=== PATIENT | male | born 1960 | race Caucasian/White ===

== ENCOUNTER 2022-03-14 15:06 | Outpatient (REF) | payer OTHER, SELFPAY ==
[2022-03-14 15:57] LABS: Influenza A PCR NEGATIVE (Negative); Influenza B PCR NEGATIVE (Negative); Resp Syncy Virus RNA Qual PCR NEGATIVE (Negative); SARS COV2 PCR INHOUSE POSITIVE (Negative)
== END 2022-03-14 15:07 | disposition home or self-care (01) ==
LOC: HO.LNP 15:06
PROVIDERS: Visit Provider Internal Medicine
DX: Z20.822 Contact with and (suspected) exposure to COVID-19 (principal); R05.9 Cough, unspecified; R09.89 Other specified symptoms and signs involving the circulatory and respiratory systems
CPT/HCPCS: 0241U

== ENCOUNTER 2022-12-05 16:09 | Outpatient (REF) | payer BC, SELFPAY ==
--- NOTE | ~2022-12-05 | XR_ITS ---
EXAMINATION: XR CHEST CLINICAL INFORMATION: Cough COMPARISON: Previous chest x-ray December 2009 TECHNIQUE: 2 views of the chest were obtained. FINDINGS: No significant abnormality is noted involving the heart, lungs, mediastinum, bony thorax or soft tissues. XR/XR chest 2V IMPRESSION: Unremarkable examination.
== END 2022-12-05 16:10 | disposition home or self-care (01) ==
LOC: HO.XRAY 16:09
PROVIDERS: PCP Internal Medicine; Visit Provider Internal Medicine
DX: R05.9 Cough, unspecified (principal)
CPT/HCPCS: 71046

== ENCOUNTER 2023-11-16 10:48 | Outpatient (REF) | payer BC, SELFPAY ==
[2023-11-16 13:23] LABS: MANUAL DIFF FLAG NO
[2023-11-16 13:29] LABS: Basophils Absolute Auto 0.1 X10*3/uL (0.0-0.2); Basophils Percent Auto 0.8 % (0-2); Eosinophils Absolute Auto 0.6 X10*3/uL (0.0-0.4); Eosinophils Percent Auto 5.9 % (0-4); Hematocrit 42.2 % (42.0-52.0); Hemoglobin 13.9 g/dl (14.0-18.0); Imm Gran Abs Auto 0.05 X10*3/uL (0.00-0.03); Imm Gran Pct Auto 0.5 % (0.0-0.4); Lymphocytes Absolute Auto 1.5 X10*3/uL (1.2-4.9); Mean Corpuscular HGB Conc 32.9 g/dl (31.0-36.0); Mean Corpuscular Hemoglobin 28.8 pg (27.0-33.0); Mean Corpuscular Volume 87.4 fL (80.0-98.0); Mean Platelet Volume 9.9 fL (9.4-12.4); Monocytes Percent Auto 10.4 % (2-11); Neutrophils Absolute Auto 6.2 x10*3/uL (2.0-8.3); Neutrophils Percent Auto 66.4 % (45-73); Platelet Count 333 X10*3/uL (160-400); Red Blood Count 4.83 X10*6/uL (4.60-5.80); Red Cell Distribution Width 13.6 % (11.0-16.0); White Blood Count 9.3 X10*3/uL (4.8-10.8)
[2023-11-16 14:09] LABS: Alanine Aminotransferase 39 U/L (0-40); Albumin Level 4.2 g/dL (3.5-5.0); Alkaline Phosphatase 120 U/L (39-117); Anion Gap 11 (12-20); Aspartate Amino Transferase 25 U/L (5-37); Bilirubin Total 0.3 mg/dL (0.0-1.0); Blood Urea Nitrogen 12 mg/dL (9-16); Calcium 9.1 mg/dL (8.4-10.2); Carbon Dioxide 25 mmol/L (22-29); Chloride 106 mmol/L (96-108); Cholesterol 152 mg/dL (<200); Estimated Glomerular Filt Rate > 60; Glucose Fasting 119 mg/dL (60-99); HDL Cholesterol 41 mg/dL (>40); LDL Cholesterol Calculated 98 mg/dL (<100); Potassium 4.2 mmol/L (3.3-5.1); Sodium 138 mmol/L (135-145); Total Protein 7.6 g/dL (6.5-8.0); Triglycerides 69 mg/dL (<150)
[2023-11-16 14:25] LABS: Prostate Specific Antigen Scr 1.27 ng/mL (<0.05-4.0)
== END 2023-11-16 10:49 | disposition home or self-care (01) ==
LOC: HO.10HDL 10:48
PROVIDERS: Visit Provider Internal Medicine
DX: Z12.5 Encounter for screening for malignant neoplasm of prostate (principal); I10 Essential (primary) hypertension; K21.9 Gastro-esophageal reflux disease without esophagitis; J45.909 Unspecified asthma, uncomplicated; E78.00 Pure hypercholesterolemia, unspecified; N40.0 Benign prostatic hyperplasia without lower urinary tract symptoms
CPT/HCPCS: 36415; 80053; 80061; 84153; 85025

== ENCOUNTER 2024-07-21 08:08 | Day surgery (SDC) | payer BC, SELFPAY ==
[2024-07-17 13:50] VITALS: BMI 37.7
--- NOTE | 2024-07-21 08:20 | HO.ANESPROP2 ---
Documented by User: Elo Mehta NP 07/18/24 09:27 HPI - Anesthesia Eval Consult details Narrative: 63yo M for Upper Endoscopy and Colonoscopy [facility] Past Medical History Medical History (Updated 07/18/24 @ 08:00 by Juani Garcia, RN) Hepatitis C Asthma Allergies Elevated cholesterol HTN (hypertension) Surgical History Surgical History (Updated 07/18/24 @ 08:00 by Juani Garcia, RN) Total knee replacement status Hx of colonoscopy Social History Social History Advance Directives: No Advance Directives Information Provided: Yes Meds Allergies Allergy/AdvReac Type Severity Reaction Status Date / Time amoxicillin [AMOXICILLIN] Allergy Mild RASH Verified 07/21/24 08:19 Home Medications ?Medication ?Instructions ?Recorded ?Confirmed ?Last Taken ?Type diltiazem HCl 120 mg 120 mg PO DAILY 07/17/24 Unknown History capsule,extended release 24 hr, controlled (DILT-XR) losartan 50 mg tablet 50 mg PO DAILY 07/17/24 Unknown History montelukast 10 mg tablet 10 mg PO DAILY 07/17/24 Unknown History omeprazole 20 mg capsule,delayed 20 mg PO DAILY 07/17/24 Unknown History release ramipril 10 mg capsule 10 mg PO DAILY 07/17/24 Unknown History simvastatin 40 mg tablet 40 mg PO BEDTIME 07/17/24 Unknown History Aspir-81 07/18/24 07/18/24 Unknown History Symbicort 07/18/24 Unknown History Ventolin HFA 07/18/24 Unknown History Exam Height,Weight and Vital Signs: Height 5 ft 11 in Weight 122.583 kg Assessment and Plan Assessment Anesthesia Assessment: Chart Reviewed Documented by User: Izabella Flowers DO 07/21/24 08:25 [facility] Past Medical History Medical History (Updated 07/18/24 @ 08:00 by Juani Garcia, RN) Hepatitis C Asthma Allergies Elevated cholesterol HTN (hypertension) Family History Family history of problems with anesthesia: No Surgical History Surgical History (Updated 07/18/24 @ 08:00 by Juani Garcia RN) Total knee replacement status Hx of colonoscopy History of Problems with Anesthesia: No Social History Social History Advance Directives: No Advance Directives Information Provided: Yes Meds Allergies Allergy/AdvReac Type Severity Reaction Status Date / Time amoxicillin [AMOXICILLIN] Allergy Mild RASH Verified 07/21/24 08:19 Home Medications ?Medication ?Instructions ?Recorded ?Confirmed ?Last Taken ?Type diltiazem HCl 120 mg 120 mg PO DAILY 07/17/24 Unknown History capsule,extended release 24 hr, controlled (DILT-XR) losartan 50 mg tablet 50 mg PO DAILY 07/17/24 Unknown History montelukast 10 mg tablet 10 mg PO DAILY 07/17/24 Unknown History omeprazole 20 mg capsule,delayed 20 mg PO DAILY 07/17/24 Unknown History release ramipril 10 mg capsule 10 mg PO DAILY 07/17/24 Unknown History simvastatin 40 mg tablet 40 mg PO BEDTIME 07/17/24 Unknown History Aspir-81 07/18/24 07/18/24 Unknown History Symbicort 07/18/24 Unknown History Ventolin HFA 07/18/24 Unknown History Exam Exam Date and Time: 07/21/24 0820 Airway Mallampati Class: II TM Dist: >3cm Neck ROM: Full Loose/Missing/Broken Teeth: No (patient denies any loose or broken teeth) Heart: S1S2 Lungs: CTAB Assessment and Plan Assessment Anesthesia Assessment: Anesthesia Plan Discussed and Chart Reviewed Final Anesthetic Review Family History of Problems with Anesthesia: No History of Problems with Anesthesia: No NPO: Yes ASA Class: II Final Preanesthetic Review: No Changes in Pt Med Stat, Meds/Allgs Chart Reviewed, Consent Obtained/Reviewed and Anes Risks/Benef Reviewed Patient Risk: Low Procedure Risk: Low Anesthetic Plan Anesthetic Plan: MAC: and Agree w/ Assess. and Plan Disposition: Standard PACU
[2024-07-21 08:21] VITALS: BMI 37.7
[2024-07-21] MEDS: Lactated Ringers 1,000 ML 100 ML IVCONT (08:42)
[2024-07-21 08:43] VITALS: BP 159/92; PULSE 91; RESP 14; TEMP 36.1; O2SAT 91
[2024-07-21 09:54] VITALS: BP 101/62; PULSE 98; RESP 16; TEMP 36.9; O2SAT 97
--- NOTE | 2024-07-21 10:03 | P.BOP_ITS ---
Brief Operative Note Date of Service: 07/21/24 Pre-op diagnosis: GERD, Screening Post-op diagnosis: other (R/O Ruiz's, Hiatal hernia, Colon polyp) Procedure: EGD with biopsies, Colonoscopy to the cecum and TI with cold snare polypectomy x 1 Surgeon: Inocente Peñaloza MD Anesthesia: MAC Was an [employer] used for this Procedure?: No Estimated blood loss (mL): 2.0 Pathology: other (A. Esophagus 38-39cm B. Gastric polyps C. Ascending colon polyp) Condition: stable Disposition: PACU
[2024-07-21 10:09] VITALS: BP 124/77; PULSE 81; RESP 16; TEMP 36.6; O2SAT 96
--- NOTE | 2024-07-21 10:32 | OP_ITS ---
DATE OF SERVICE: 07/21/2024 SURGEON: Inocente Peñaloza MD INDICATIONS: The patient presents for evaluation of gastroesophageal reflux and colorectal cancer screening. Full consent has been obtained from him for this, including risks of bleeding and perforation. PREOPERATIVE DIAGNOSIS: POSTOPERATIVE DIAGNOSIS: PROCEDURE PERFORMED: Esophagogastroduodenoscopy with biopsies, and colonoscopy to the cecum and terminal ileum with cold snare polypectomy. ESTIMATED BLOOD LOSS: COMPLICATIONS: ANESTHESIA: Monitored anesthesia care. ASSISTANTS: SPECIMENS: PREOPERATIVE DIAGNOSES: Gastroesophageal reflux and colorectal cancer screening. POSTOPERATIVE DIAGNOSES: Gastroesophageal reflux, colorectal cancer screening, rule out Ruiz esophagus, hiatal hernia, gastric polyps, colon polyp, diverticulosis, and internal hemorrhoids. DESCRIPTION OF PROCEDURE: The patient was placed in the left lateral decubitus position. The Olympus video gastroscope was passed in the posterior oropharynx and upper esophagus under direct vision. The scope was passed slowly into the distal esophagus. The gastroesophageal junction appeared at 39 cm. Extending from this to 38 cm, was a segment of what appeared to be noncircumferential Ruiz mucosa. There was no overlying lesion nor esophagitis. The scope entered the stomach. There was a small hiatal hernia. The scope was advanced to pylorus and the duodenum was cannulated to the descending portion. The duodenum including the bulb appeared normal without mass or ulceration. The scope was withdrawn back to the stomach. The gastric antrum and body appeared normal with good peristalsis. Scope was retroflexed, visualizing the proximal stomach carefully which appeared normal, without any sign of mass or ulceration, other than multiple hyperplastic-appearing gastric polyps. Three of these were biopsied. The remainder of the proximal stomach appeared normal. The scope was straightened and withdrawn back to the esophagus. Multiple biopsies were obtained from the segment of mucosa appearing consistent with Ruiz mucosa. Proximal to 38 cm, the esophageal mucosa appeared normal. The scope was withdrawn from the patient. He was turned around for the colonoscopy. The digital rectal exam revealed no abnormalities. The Olympus video pediatric colonoscope was then entered into the rectum and advanced easily to the cecum. Once in the cecum, I did identify normal-appearing cecal pouch with appendiceal orifice and a normal-appearing ileocecal valve. The terminal ileum was cannulated and appeared normal. The scope was withdrawn back in the colon. The entire cecum and ileocecal valve appeared normal. The scope was then slowly withdrawn assessing all mucosal surfaces carefully. Preparation was excellent. In the proximal ascending colon, was an approximately 5 mm grossly adenomatous polyp, which was removed by cold snare polypectomy and recovered by suction. The polypectomy site appeared clean, without any sign of residual polyp nor bleeding. I did not visualize any other polyps, colitis, nor angiodysplasias. There was a mild amount of sigmoid diverticulosis. In the rectum, scope was retroflexed, visualizing internal hemorrhoids, but no other pathology. The rectal mucosa appeared normal. The scope was straightened and withdrawn from the patient. He tolerated the procedure well and was returned to the recovery area in stable condition. IMPRESSION: 1. Gastroesophageal reflux, rule out Ruiz esophagus. 2. Hiatal hernia. 3. Gastric polyps. 4. Colon polyp. 5. Diverticulosis. 6. Internal hemorrhoids. PLAN: The results of the pathology will be checked. If the colon polyp is a tubular adenoma, I would recommend a followup colonoscopy in 5 years. If it is only hyperplastic, I would recommend a followup colonoscopy in 10 years. If the upper endoscopy biopsies do show Ruiz esophagus without dysplasia, I would recommend a repeat upper endoscopy in 3 years. He was advised to continue his daily omeprazole. He was advised not to use any aspirin and NSAIDs for 1 week. He will, otherwise, see me on a p.r.n. basis. MD GHADA Costello/JUDY / [id number]
== END 2024-07-21 10:40 | disposition home or self-care (01) ==
PROVIDERS: PCP Internal Medicine; Visit Provider Internal Medicine
PROC: (CPT 45385; principal; 2024-07-21 08:30)
DX: Z12.11 Encounter for screening for malignant neoplasm of colon (principal); D12.2 Benign neoplasm of ascending colon; K57.30 Diverticulosis of large intestine without perforation or abscess without bleeding; K64.8 Other hemorrhoids; K21.9 Gastro-esophageal reflux disease without esophagitis; K22.70 Barrett's esophagus without dysplasia; K31.7 Polyp of stomach and duodenum; K44.9 Diaphragmatic hernia without obstruction or gangrene; I10 Essential (primary) hypertension; E78.5 Hyperlipidemia, unspecified; J45.909 Unspecified asthma, uncomplicated; Z79.51 Long term (current) use of inhaled steroids; Z79.899 Other long term (current) drug therapy; Z87.891 Personal history of nicotine dependence
CPT/HCPCS: 45385; 43239; 88305; 88313; 88342; J1100; J1596; J2003; J2704

== ENCOUNTER 2024-10-01 11:43 | Outpatient (REF) | payer BC, SELFPAY ==
--- NOTE | ~2024-10-01 | XR_ITS ---
EXAMINATION: XR CHEST CLINICAL INFORMATION: COUGH,ASTHMA COMPARISON: December 05, 2022. TECHNIQUE: 2 views of the chest were obtained. FINDINGS: There is no gross pneumothorax. Heart size is normal. Lung volumes are low. Faint opacities in the bilateral lower lungs, right greater than left. No significant pleural effusion. Moderate degenerative changes in the thoracic spine. XR/XR chest 2V IMPRESSION: Faint opacities in the bilateral lower lungs, right greater than left. This study was presented today to October 01, 2024 for interpretation. Stat results provided at this time as requested by referring provider. Electronically signed by: Shanice Correia MD 10/01/2024 01:34 PM [facility]
--- OUTSIDE RECORDS SUMMARY | 2024-10-01 11:46 | XMS_ITS | Patient Health Record ---
Author Organization [facility] Address [address] [facility] [address] [place] [phone] Care Team Providers Care Brim Presser Name Role Phone Jayro Banegas MD Primary Care Provider Inocente France Unavailable [phone] ALLERGIES No Known Allergies RESULTS Component Value Reference Range Notes Pathology (Not yet reviewed by provider) Interpretation: Performing Lab:[facility], [address] [place] [phone] Notes/Report: REASON FOR REFERRAL Referring Provider First Name Jayro Referring Provider Last Name Makenzie Referring Provider Speciality Internal M edicine Referred Organization [facility] Referred Provider Inocente Peñaloza Referred Address [address] [facility],[address],[place], [place],[address], Referred Provider Specialty Gastroentero logy General Notes Adwoa Solo 024 11:46:23 AM EDT > requested an o blue ref from Dr Mccann office for visit with Dr Peñaloza 03-14-2024 Referral Priority Routine MEDICATIONS Medication SIG (Take, Route, Frequency, Duration) Notes Start Date End Date Status Symbicort 80-4.5 MCG/ACT 1 puff as neede d Inhalation every 4 hrs Active Omeprazole 20 MG 1 capsule Orally Onc e a day for 30 day(s) 10/20/2016 Active Ventolin HFA 108 (90 Base) MCG/ACT 1 puff as needed Inhalation every 4 hrs Active Aspir-Low 81 MG 1 tablet Orally Once a day for 30 day(s) Active dilTIAZem HCl 120 MG as directed Orally Active Losartan Potassium 50 MG 1 tablet Orally Once a day for 30 day(s) Active Simvastatin 40 MG 1 tablet in the even ing Orally Once a day Active Montelukast Sodium 10 MG 1 tablet Orally Once a day Active IMMUNIZATIONS Vaccine Route Administration Date Status Comme nts Influenza Unknown 08/07/2023 Administered SOCIAL HISTORY Sex Assigned At : Social History Observation Description Sex Assigned At Unknown PROBLEMS Problem Type ICD Code Onset Dates Problem Status W/U Status Risk SNOMED Code Notes Problem Gastroesophageal reflux disease, esophagitis presence not specified (K21.9) Active confirmed 656232706 Problem Encounter for screening for malignant neoplasm of colon (Z12.11) Active confirmed 551912987 Problem Encounter for screening for malignant neoplasm of rectum (Z12.12) Active confirmed Screening for malignant neoplasm of rectum (586106127) Problem Diverticulosis of large intestine without perforation or abscess without bleeding (K57.30) Active confirmed Diverticul ar disease of colon (668077633) Problem Gastroesophageal reflux disease (K21.9) Active confirmed Gastroesophagea l reflux disease (129578462) Problem Gastric polyps (K31.7) Active confirmed Benign neoplasm of stomach (79126039) VITAL SIGNS Temperature 98.2 degrees Fahrenheit 04/01/2024 Blood pressure diastolic 00 mm Hg 04/01/2024 Height 71 in 04/01/2024 Blood pressure systolic 000 mm Hg 04/01/2024 Weight 270 lb 4 oz lbs 04/01/2024 BMI 37.69 kg/m2 04/01/2024 Encounters Encounter Location Date Provider Diagnosis [facility] [place] [address], [place] [phone] 07/21/2024 Inocente Peñaloza Colon cancer screeni ng Z12.11 ; Colon polyps K63.5 ; Diverticulosis of large intestine without perforation or abscess without bleeding K57.30 ; Other hemorrhoids K64.8 ; Gastroesophageal reflux disease K21.9 ; Other specified disease of esophagus K22.89 ; Hiatal hernia K44.9 and Gastric polyps K31.7 [facility] [address] [place] [address] 04/01/2024 Inocente Peñaloza Gastroesophageal ref lux disease, esophagitis presence not specified K21.9 ; Encounter for screening for malignant neoplasm of colon Z12.11 and Encounter for screening for malignant neoplasm of rectum Z12.12 ASSESSMENTS Encounter Date Diagnosis Assessment Notes Treatment Notes Treatment Clinical Notes 07/21/2024 Colon cancer screeni ng (ICD-10 - Z12.11) 07/21/2024 Colon polyps (ICD-10 - K63.5) 04/01/2024 Encounter for screen ing for malignant neoplasm of colon (ICD-10 - Z12.11) 04/01/2024 Gastroesophageal ref lux disease, esophagitis presence not specified (ICD-10 - K21.9) Stop aspirin for 1 week before the procedures 07/21/2024 Diverticulosis of la rge intestine without perforation or abscess without bleeding (ICD-10 - K57.30) 04/01/2024 Encounter for screen ing for malignant neoplasm of rectum (ICD-10 - Z12.12) 07/21/2024 Other hemorrhoids (ICD-10 - K64.8) 07/21/2024 Gastroesophageal ref lux disease (ICD-10 - K21.9) 07/21/2024 Other specified dise ase of esophagus (ICD-10 - K22.89) 07/21/2024 Hiatal hernia (ICD-1 0 - K44.9) 07/21/2024 Gastric polyps (ICD- 10 - K31.7) PLAN OF TREATMENT Pending Test Test Name Order Date Pathology 07/21/2024 Future Test Test Name Order Date UPPER GI ENDOSCOPY 10/20/2016 COLONOSCOPY 10/20/2016 UPPER GI ENDOSCOPY 04/01/2024 COLONOSCOPY 04/01/2024 Insurance Providers Payer Name Payer Address Payer Phone Subscriber Number Group Number Insured Name Patient Relationship to Insured Coverage Start Date Coverage End Date [facility] [address] [place] [address] [id number] ADENIKE HAMILTON Self - patient is the insured MEDICAL (GENERAL) HISTORY Medical History History ICD Code Denies NE,DM,CVA,renal disease Hypertension Kidney stones--cystoscopy Asthma GERD Hyperlipidemia Told of an irregular heartbeat --Dr. Anabella brar--neg.ETT Surgical History Surgery Date(Month/Year)
--- OUTSIDE RECORDS SUMMARY | 2024-10-01 11:46 | XMS_ITS ---
Author Organization [facility] Address [address] [place] [address] Care Team Providers Care Cashier Manager Name Role Phone Jayro Banegas MD Primary Care Provider Kateya Inocente Soto Unavailable [phone] REASON FOR VISIT screening,gerd PROBLEMS Problem Type ICD Code Onset Dates Problem Status W/U Status Risk SNOMED Code Notes Problem Diverticulosis of large intestine without perforation or abscess without bleeding (K57.30) Active confirmed Diverticul ar disease of colon (360676903) Problem Gastroesophageal reflux disease (K21.9) Active confirmed Gastroesophagea l reflux disease (812903758) Problem Gastric polyps (K31.7) Active confirmed Benign neoplasm of stomach (55038292) Encounters Encounter Location Date Provider Diagnosis [facility] [place] [address] [place] [phone] 07/21/2024 Inocente Peñaloza Colon cancer screeni ng Z12.11 ; Colon polyps K63.5 ; Diverticulosis of large intestine without perforation or abscess without bleeding K57.30 ; Other hemorrhoids K64.8 ; Gastroesophageal reflux disease K21.9 ; Other specified disease of esophagus K22.89 ; Hiatal hernia K44.9 and Gastric polyps K31.7 ASSESSMENTS Encounter Date Diagnosis Assessment Notes Treatment Notes Treatment Clinical Notes 07/21/2024 Colon cancer screeni ng (ICD-10 - Z12.11) 07/21/2024 Colon polyps (ICD-10 - K63.5) 07/21/2024 Diverticulosis of la rge intestine without perforation or abscess without bleeding (ICD-10 - K57.30) 07/21/2024 Other hemorrhoids (ICD-10 - K64.8) 07/21/2024 Gastroesophageal ref lux disease (ICD-10 - K21.9) 07/21/2024 Other specified dise ase of esophagus (ICD-10 - K22.89) 07/21/2024 Hiatal hernia (ICD-1 0 - K44.9) 07/21/2024 Gastric polyps (ICD- 10 - K31.7) PLAN OF TREATMENT No Information
--- OUTSIDE RECORDS SUMMARY | 2024-10-01 11:46 | XMS_ITS ---
Author Organization [facility] Address [address] [place] [phone] Care Team Providers Care Epoxy Fabrication Supervisor Name Role Phone Jayro Banegas MD Primary Care Provider Inocente France Unavailable [phone] ALLERGIES No Known Allergies REASON FOR VISIT Patient presents today for a COLON SCREENING MEDICATIONS Medication SIG (Take, Route, Frequency, Duration) Notes Start Date End Date Status Ventolin HFA 108 (90 Base) MCG/ACT 1 [...] even ing Orally Once a day Active Symbicort 80-4.5 MCG/ACT 1 puff as neede d Inhalation every 4 hrs Active Omeprazole 20 MG 1 capsule Orally Onc e a day for 30 day(s) 10/20/2016 Active Montelukast Sodium 10 MG 1 tablet Orally Once a day Active VITAL SIGNS BMI 37.69 kg/m2 04/01/2024 Blood pressure systolic 000 mm Hg 04/01/20 24 Blood pressure diastolic 00 mm Hg 024 Height 71 in 04/01/2024 Temperature 98.2 degrees Fahrenheit 04/01/20 24 Weight 270 lb 4 oz lbs 04/01/2024 Encounters Encounter Location Date Provider Diagnosis [facility] [address] [place] [id number] 04/01/2024 Inocente Peñaloza Gastroesophageal ref lux disease, esophagitis presence not specified K21.9 ; Encounter for screening for malignant neoplasm of colon Z12.11 and Encounter for screening for malignant neoplasm of rectum Z12.12 ASSESSMENTS Encounter Date Diagnosis Assessment Notes Treatment Notes Treatment Clinical Notes 04/01/2024 Gastroesophageal ref lux disease, esophagitis presence not specified (ICD-10 - K21.9) Stop aspirin for 1 week before the procedures 04/01/2024 Encounter for screen ing for malignant neoplasm of colon (ICD-10 - Z12.11) 04/01/2024 Encounter for screen ing for malignant neoplasm of rectum (ICD-10 - Z12.12) PLAN OF TREATMENT Treatment Notes Assessment Notes Gastroesophageal reflux dise ase, esophagitis presence not specified Stop aspirin for 1 week before the procedures Future Test Test Name Order Date UPPER GI ENDOSCOPY 04/01/2024 COLONOSCOPY 04/01/2024 Next Appt Details Follow Up: prn, Reason: Progress Notes * Examination Category Sub-Category Detail Notes General Examination GENERAL APPEARANCE: pleasant , well nourished, well developed, in no acute distress HEAD: EYES: sclera non-icteric EARS: NOSE: THROAT: NECK/THYROID: no cervical lymphade nopathy, neck supple HEART: S1, S2 normal CHEST: LUNGS: clear to auscultatio n bilaterally ABDOMEN: normal bowel sounds, no guarding or rigidity, no guarding or rigidity, no masses palpable, soft, nontender, nondistended NEUROLOGIC: alert and oriented SKIN: nonjaundiced, no spi sapna angiomata EXTREMITIES: no edema PERIPHERAL PULSES: BACK: BREASTS: MUSCULOSKELETAL: MALE GENITOURINARY: LYMPH NODES: RECTAL EXAM: FEMALE GENITOURINARY: ORAL CAVITY: mucosa moist
== END 2024-10-01 11:44 | disposition home or self-care (01) ==
LOC: HO.XRAY 11:43
PROVIDERS: PCP Internal Medicine; Visit Provider Internal Medicine
DX: R05.9 Cough, unspecified (principal); J45.909 Unspecified asthma, uncomplicated
CPT/HCPCS: 71046

== ENCOUNTER 2024-12-26 15:17 | Outpatient (AMB) | payer BC, SELFPAY ==
[2024-12-26 15:29] VITALS: BP 130/72; PULSE 91; O2SAT 97; BMI 39.7
--- NOTE | 2024-12-26 15:29 | A.OFFVIS_ITS ---
Vital Signs 12/26/24 15:29 Height 5 ft 11 in Weight 285 lb BMI 39.7 BP 130/72 Blood Pressure Location Rt brachial Position Sitting Pulse 91 Pulse Source Pulse Oximeter Pulse Oximetry (%) 97 Oxygen Delivery Method Room Air Intake Visit Reasons: Asthma Press Hand Supervisor Required: No Sign Manufacturer: Sign Manufacturer offered & declined Accompanied by: Self / Same As Patient Allergies amoxicillin [AMOXICILLIN] Allergy (Mild, Verified 12/26/24 15:33) RASH Medication List - Last Reconciled 12/26/24 by Emily Karimi LPN albuterol sulfate 2.5 mg inhalation Q4H PRN [Aspir-81 ] diltiazem HCl ER (DILT-XR) 120 mg PO DAILY losartan 50 mg PO DAILY montelukast 10 mg PO DAILY omeprazole 20 mg PO DAILY ramipril 10 mg PO DAILY simvastatin 40 mg PO BEDTIME [Symbicort ] [Ventolin HFA ] HPI HPI Asthma: Details: Pérez is a pleasant 64 year old male, former smoker, quit 20 years ago with 20pyh with underlying asthma, HTN and GERD. He was referred by PCP for pulmonary evaluation. He reports persistent productive cough with green sputum, wheezing and dyspnea, last treated with doxycycline and prednisone on 10/27/24. Prior to t [facility] he was treated with prednisone and azithromycin with suboptimal effect. He has been using albuterol MDI/neb multiple times per day with moderate effect. He is currently prescribed Symbicort 160mcg however has not taken consistently up until recently. He notes that with URI he would take however once symptoms resolve he would hold Symbicort. He reports h/o recurrent respiratory infections however this year has been more persistent. He reports asthma dx as an adult, never requiring intubation/hospitalization related to respiratory distress. He denies seasonal allergies however respiratory symptoms worsen seasonally. He denies any recent allergy testing. He denies any occupational exposures. He denies any pertinent family history. [facility] Medical History (Updated 12/26/24 @ 15:58 by Jacqueline Jeter NP) Hepatitis C Asthma Allergies Elevated cholesterol HTN (hypertension) Surgical History (Updated 07/18/24 @ 08:00 by Juani Garcia RN) Total knee replacement status Hx of colonoscopy Social History (Updated 12/26/24 @ 15:38 by Emily Karimi LPN) Are you a primary post acute care nurse practitioner to a significant other at home: No Do you presently have visiting nurse or other home services: No Patient Tobacco Use Status: Former Tobacco user Cigarette Packs Per Day: 1 Years Smoked: 20 Review of Systems Const Denies chills, Denies excessive sweating, Denies fever(s), Denies headache(s) and Denies night sweats Eyes Denies dry eyes, Denies irritation and Denies itchy eyes ENT Reports Normal hearing present, Denies headache(s), Denies nasal congestion, Denies nasal discharge, Denies post nasal drip and Denies sore throat Card Denies chest pain, Denies chest pain at rest, Denies chest pain with activity, Denies claudication, Denies leg edema, Reports dyspnea on exertion, Denies orthopnea and Denies paroxysmal nocturnal dyspnea Resp Reports change in phlegm color, Reports chest congestion, Reports cough, Denies hemoptysis, Reports excessive phlegm production, Denies pain on inspiration, Denies pain with cough, Reports dyspnea on exertion, Denies stridor and Reports wheezing Musc Denies myalgias Neuro Reports Normal hearing present and Denies headache(s) Endo Denies excessive sweating Cas/Lymph Denies lymphadenopathy Aller/Immun Denies itchy eyes, Denies seasonal rhinorrhea and Reports wheezing Physical Exam Vital Signs: Last Vital Signs Pulse 91 12/26/24 15:29 BP 130/72 12/26/24 15:29 Pulse Ox 97 12/26/24 15:29 Oxygen Delivery Method Room Air 12/26/24 15:29 BMI result Body Mass Index 39.7 Const General: cooperative, healthy appearing, comfortable, no acute distress, well developed and alert Nutritional Appearance: obese Orientation/consciousness: patient oriented x3 Limitations: no limitations HEENT Head: Yes normal to inspection, Yes normocephalic and Yes atraumatic Ears: hearing grossly normal bilaterally and external ears normal Eyes General: appearance normal, both eyes and all related structures Eyelids: Yes eyelids normal Sclerae: sclerae normal EOM: EOMs intact bilaterally Neck Neck: Yes normal visual inspection and Yes no lymphadenopathy Lymphatic: no lymphadenopathy noted Chest Chest palpation & inspection: normal inspection of the chest Resp Effort & Inspection: normal respiratory effort, able to speak in complete sentences, no audible wheezes, Actively coughing (harsh wet cough), no stridor, not tachypneic, no tripod positioning and no use of accessory muscles Auscultation: rhonchi and wheezes Cardio Jugular venous distension: no JVD Rate: regular rate Rhythm: regular rhythm Skin Other: warm, dry General skin exam: no rashes or lesions noted Neuro General: patient oriented x3 Cranial nerves: Yes Normal hearing present Cognition (Neuro): normal cognition Gait exam (Neuro): Normal gait present Extrem General: Yes normal to inspection, Yes capillary refill normal, Yes no clubbing, cyanosis or edema and Yes no pedal edema Psych Appearance: grossly normal and well kempt Speech and movement: Normal speech and movement present and Clear speech present Affect: normal affect Attitude: cooperative Thought process: Normal thought process present Thought content: Normal thought content present Insight: Good insight present (Psych) Judgement: Good judgement present (Psych) Office Procedures Nebulizer Treatment Nebulizer Treatment 13361-Qkhfjyrrd/MDI RX initial, or Nebulizer Subsequent Treatment Office Meds ipratropium 0.5 mg-albuterol 3 mg (2.5 mg base)/3 mL nebulization soln Performing Provider: Jacqueline Jeter NP Performing Location: [facility] [place] [facility] Administered by: Emily Karimi LPN on 12/26/24 16:10 Dose Route Admin Location Dispensed Lot Number Expiration Date [facility] Orthopedic Rn 3 mL inhalation 3 mL [id number] 06/14/26 [id number] [employer] Assessment & Plan Assessment & Plan (1) Asthma: Code(s): J45.909 - Unspecified asthma, uncomplicated Category: Medical (2) Cough: Code(s): R05.9 - Cough, unspecified Category: Medical (3) Environmental allergies: Code(s): Z91.09 - Other allergy status, other than to drugs and biological substances Category: Medical Plan Pérez presents with subacute cough with minimal response to azithromycin and doxycycline, will send in Vantin and prednisone. If no improvements will send for sputum. Will also send for CXR, prior CXR 10/07 revealed bibasilar opacities. Will enter order for PFT to assess severity of obstructive defect as well as RAST to assess for an allergic component. All questions were answered and patient is in agreement of plan. Will follow up in 4 weeks or sooner if needed. Orders: Orders XR chest 2V 12/27/24 R05.9 - Cough, unspecified PFT pulmonary function test 12/26/24 J45.909 - Unspecified asthma, uncomplicated Immunoglobulin E 12/27/24 Z91.09 - Other allergy status, other than to drugs and biological substances Resp Allergy Profile Region I 12/27/24 Z91.09 - Other allergy status, other than to drugs and biological substances Complete Blood Count Auto Diff 12/27/24 Z91.09 - Other allergy status, other than to drugs and biological substances AMB Nebulizer Treatment 12/26/24 J45.909 - Unspecified asthma, uncomplicated Medications: New cefpodoxime must administer with a meal/food 200 mg PO BID 14 tabs 0RF prednisone see taper instructions; 40 mg Daily x3 days, 30 mg daily x3 days, 20 mg daily x3 days, 10 mg daily x3 days 10 mg PO DIRECTED 30 tabs 0RF ipratropium-albuterol 0.5 mg-3 mg(2.5 mg base)/3 mL 3 mL inhalation Q6H PRN 180 mL 3RF wheezing Coding Level of Care Code New Pt Level 4 (96293) Diagnoses Asthma J45.909 Cough R05.9 Environmental allergies Z91.09 CPT Codes Nebulizer Treatment - Nebulizer Treatment, initial or subsequent: 84332- Nebulizer/MDI RX initial, or Nebulizer Subsequent Treatment ([id number])
--- OUTSIDE RECORDS SUMMARY | 2024-12-26 16:32 | XMS_ITS ---
Author Organization [facility] Address [address] [place] [phone] Care Team Providers Care Financial Institution Treasurer Name Role Phone Jayro Banegas MD Primary Care Provider Inocente France Unavailable [phone] REASON FOR VISIT screening,gerd Problems Problem Type SNOMED Code ICD Code Onset Dates Problem Status W/U Status Risk Notes Problem Diverticular disease of colon (509162824) Diverticulosis of large intestine without perforation or abscess without bleeding (K57.30) Active confirmed Problem Gastroesophageal reflux disease (818111021) Gastroesophageal reflux disease (K21.9) Active confirmed Problem Benign neoplasm of stomach (98527557) Gastric polyps (K31.7) Active confirmed Encounters Encounter Location Date Provider Diagnosis [facility] [place] [address] [place] [phone] 07/21/2024 Inocente Peñaloza Colon cancer screeni ng [...] Notes * ADENIKE HAMILTONDOB:1960 (64 yo M)Acc No.[id number]:07/21/2024 EGD and COL/MAC Patient:?ADENIKE HAMILTON Provider:?Inocente Peñaloza MD :1960???Age:63 Y???Sex:Male Cody e:07/21/2024 Address:[address] [place], [place] [phone] Pcp:Jayro Banegas MD Subjective: * Chief Complaints: * ???1. Screening,gerd. * Medical History:? Objective: * Vitals:? Assessment: * Assessment: 1.?Colon cancer screening - Z12.11 (Primary)???2.?Colon polyps - K63.5???3.?Diverticulosis of large intestine without perforation or abscess without bleeding - K57.30???4.?Other hemorrhoids - K64.8???5.?Gastroesophageal reflux disease - K21.9???6.?Other specified disease of esophagus - K22.89???7.?Hiatal hernia - K44.9???8.?Gastric polyps - K31.7??? Plan: * Treatment: * Procedure Codes:?31184 LESIO N REMOVAL COLONOSCOPY, Modifiers: [place] , [address] UPPER GI ENDOSCOPY, BIOPSY * * The named appointment provid er may or may not be the originator of this progress note, and it is not deemed complete until electronically signed by the appointment provider. Sign off status: Pending * Provider:?Inocente Peñaloza MD Date:? 024 Generated for Beto nguyen/Karlene/eTransmitting on:?12/26/2024 04:31 PM EDT
--- OUTSIDE RECORDS SUMMARY | 2024-12-26 16:32 | XMS_ITS ---
Author Name [facility] Organization Unknown Encounters Encounter Type Encounter Reason Primary Diagnosis Location Date Emergency COVID + [facility] 01/12/2022 Care Team Organization Name Specialty Phone Email Start Date End Da te [facility] VERIFY,PCP Primary Care 2 06/02/2024 [facility] PCP VERIFY Primary Care 2 01/12/2022
--- OUTSIDE RECORDS SUMMARY | 2024-12-26 16:32 | XMS_ITS | Patient Health Record ---
Author Organization [facility] Address [address] [place] [phone] Care Team Providers Care Galvanizer Name Role Phone Jayro Banegas MD Primary Care Provider Kateya Inocente Soto Unavailable [phone] Allergies No Known Allergies Results Component Value Reference Range Notes Pathology (Not yet reviewed by provider) Interpretation: Performing Lab:[facility], [address] [place] [phone] Notes/Report: Name: Pérez Hazel José Miguel Age/Sex: 63/M : 1960 Unit#: [id number] Attend Dr: Inocente Peñaloza MD Re07/21/24 Status : [facility] Location: [facility] Disch: SPEC : [id number] RECD : 07/21/24-1006 STATUS: DES MURPHY NUM: [id number] DAVID: 07/21/24-[address] [facility] [address]: Inocente Peñaloza MD ENTERED: 07/21/24- TYPE: Surgical OTHR DR: Jayro Banegas MD ORDERED: HE Stain/6, Gross Micro L4/3, IHC, Special st. 2, H. pylori, AB/PAS Diagnosis A. 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 - No dysplasia seen. - Squamous mucosa wi thin normal limits. B. Stomach, polyps: Fundic gland polyps with background mild chronic inactive inflammation; no Hel icobacter organisms seen. C. Colon, ascending, polypectomy: Fragments of tubular adenoma; negative for high-grade dysplasia or carcinoma. Clinical History Pre-Op Dx: GERD Post-Op Dx: Hiatal h ernia, gastric polyps, GERD, colon polyp, diverticulosis, hemorrhoids Microscopic Description A-C. Microscopic sec tions examined. No metaplastic changes are seen, supported by AB/PAS stains (B); no Helic obacter organisms are seen, supported by H. pylori immunostain (B). Material Received A. Esophagus bx 38-39 cm B. Gastric polyps C. Ascending colon polyp Gross Description Received in three parts. Part A: Received in formalin labeled ?esophagus bx 38 cm-39 cm are 7 harrington and harrington-pink irregular tissue fra gments ranging from 0.1 to 0.3 cm, submitted in toto in a cassette labeled A. Part B: Received in formalin labeled ?gastric polyps? are 3 harrington-pink irregular tissue fragments each measu ring 0.25 cm, submitted in toto in a cassette labeled B. Part C: Received in formalin labeled ?ascending colon polyp? is a 0.35 cm harrington papular tissue fragment, sub mitted in toto in a cassette labeled C. CEDS Special studies orde red and performed: Immunostain for H. pylori on B; AB/PAS stains on B CONTINUED ON NEXT PAGE Name: Pérez Hazel Age/Sex: 63/M : 1960 Unit#: [id number] Attend Dr: Inocente Peñaloza MD Re07/21/24 Status : [facility] Location: [facility] Disch: SPEC : [id number] RECD : 07/21/24 STATUS: DES MURPHY NUM: [id number] DAVID: 07/21/[address] [facility] [address]: Inocente Peñaloza MD ENTERED: 07/21/24 SP TYPE: Surgical OTHR DR: Jayro Banegas MD ORDERED: HE Stain/6, Gross Micro L4/3, IHC, Special st. 2, H. pylori, AB/PAS Copies To: Jayro Banegas MD [facility] [address] [place] [address] Inocente Peñaloza MD [facility] [address] [place] [address] Signed (si gnature on file) Hung Andrew MD 07/23/24 1433 END OF REPORT Reason For Referral Referring Provider First Name Jayro Referring Provider Last Name Makenzie Referring Provider Speciality Internal M edicine Referred Organization [facility] Referred Provider Inocente Peñaloza Referred Address [address] [place] [address],[facility] [address],[place], [place],[address], Referred Provider Specialty Gastroentero logy General Notes Adwoa Solo 024 11:46:23 AM EDT > requested an [facility] ref from Dr Mccann office for visit with Dr Peñaloza 03-14-2024 Referral Priority Routine Medications Medication SIG (Take, Route, Frequency, Duration) Notes [...] 1 tablet Orally Once a day Active Immunizations Vaccine Route Administration Date Status Comme nts Influenza Unknown 08/07/2023 Administered Problems Problem Type SNOMED Code ICD Code Onset Dates Problem Status W/U Status Risk Notes Problem [id number] Encounter for screening for malignant neoplasm of colon (Z12.11) Active confirmed Problem Diverticular disease of colon (457615823) Diverticulosis of large intestine without perforation or abscess without bleeding (K57.30) Active confirmed Problem Screening for malignant neoplasm of rectum (793751297) Encounter for screening for malignant neoplasm of rectum (Z12.12) Active confirmed Problem Gastroesophageal reflux disease (202421927) Gastroesophageal reflux disease (K21.9) Active confirmed Problem 009392247 Gastroesophageal reflux disease, esophagitis presence not specified (K21.9) Active confirmed Problem Benign neoplasm of stomach (63488614) Gastric polyps (K31.7) Active confirmed Vital Signs Temperature 98.2 degrees Fahrenheit 04/01/2024 Blood pressure diastolic 00 mm Hg 04/01/2024 Height 71 in 04/01/2024 Blood pressure systolic 000 mm Hg 04/01/2024 Weight 270 lb 4 oz lbs 04/01/2024 BMI 37.69 kg/m2 04/01/2024 Encounters Encounter Location Date Provider Diagnosis [facility] Outpatient [address] [place], [place] [phone] 07/21/2024 Inocente Peñaloza Colon cancer screeni ng Z12.11 ; Colon polyps K63.5 ; Diverticulosis of large intestine without perforation or abscess without bleeding K57.30 ; Other hemorrhoids K64.8 ; Gastroesophageal reflux disease K21.9 ; Other specified disease of esophagus K22.89 ; Hiatal hernia K44.9 and Gastric polyps K31.7 [facility] [address] [facility] [address] [facility] [address] [place] [address] 04/01/2024 Inocente Peñaloza Gastroesophageal ref lux disease, esophagitis presence not specified K21.9 ; Encounter for screening for malignant neoplasm of colon Z12.11 and Encounter for screening for malignant neoplasm of rectum Z12.12 Assessments Encounter Date Diagnosis (ICD Code) Assessment Notes Treatment Notes Treatment Clinical Notes Section Notes 07/21/2024 Colon cancer screening (ICD-10 - Z12.11) 07/21/2024 Colon polyps (ICD-10 - K63.5) 04/01/2024 Encounter for screening for malignant neoplasm of colon (ICD-10 - Z12.11) Overall, Pérez appears quite well. Given his age, his never having had a colonoscopy, and a good clinical appearance, I did recommend a colonoscopy for screening purposes. We did review the rationale for that regard to colon cancer prevention. I also recommended an upper endoscopy for his long-standing reflux so as to rule out any component of Ruiz's esophagus, significant esophagitis, and/or significant hiatal hernia. Full consent was obtained from both procedures, including risks of bleeding and perforation. The procedures will be done with monitored anesthesia care. He was stop aspirin one week before the procedures. Pérez was comfortable with this plan. Thank you again for allowing me to participate in Pérez's care. I shall continue to keep you advised of his progress. 04/01/2024 Gastroesophageal reflux disease, esophagitis presence not specified (ICD-10 - K21.9) Stop aspirin for 1 week before the procedures Overall, Pérez appears quite well. Given his age, his never having had a colonoscopy, and a good clinical appearance, I did recommend a colonoscopy for screening purposes. We did review the rationale for that regard to colon cancer prevention. I also recommended an upper endoscopy for his long-standing reflux so as to rule out any component of Ruiz's esophagus, significant esophagitis, and/or significant hiatal hernia. Full consent was obtained from both procedures, including risks of bleeding and perforation. The procedures will be done with monitored anesthesia care. He was stop aspirin one week before the procedures. Pérez was comfortable with this plan. Thank you again for allowing me to participate in Pérez's care. I shall continue to keep you advised of his progress. 07/21/2024 Diverticulosis of large intestine without perforation or abscess without bleeding (ICD-10 - K57.30) 04/01/2024 Encounter for screening for malignant neoplasm of rectum (ICD-10 - Z12.12) Overall, Pérez appears quite well. Given his age, his never having had a colonoscopy, and a good clinical appearance, I did recommend a colonoscopy for screening purposes. We did review the rationale for that regard to colon cancer prevention. I also recommended an upper endoscopy for his long-standing reflux so as to rule out any component of Ruiz's esophagus, significant esophagitis, and/or significant hiatal hernia. Full consent was obtained from both procedures, including risks of bleeding and perforation. The procedures will be done with monitored anesthesia care. He was stop aspirin one week before the procedures. Pérez was comfortable with this plan. Thank you again for allowing me to participate in Pérez's care. I shall continue to keep you advised of his progress. 07/21/2024 Other hemorrhoids (ICD-10 - K64.8) 07/21/2024 Gastroesophageal reflux disease (ICD-10 - K21.9) 07/21/2024 Other specified disease of esophagus (ICD-10 - K22.89) 07/21/2024 Hiatal hernia (ICD-10 - K44.9) 07/21/2024 Gastric polyps (ICD-10 - K31.7) Plan Of Treatment Pending Test Test Name Order Date Pathology 07/21/2024 Future Test Test Name Order Date UPPER GI ENDOSCOPY 10/20/2016 COLONOSCOPY 10/20/2016 UPPER GI ENDOSCOPY 04/01/2024 COLONOSCOPY 04/01/2024 Insurance Providers Payer Name Payer Address Payer Phone Subscriber Number Group Number Insured Name Patient Relationship to Insured Coverage Start Date Coverage End Date [facility] [employer] CLAIM[employer] [address] [place] [address] [id number] ALFONSO PÉREZ Self - patient is the insured Medical (General) History Medical History History ICD Code Denies [place],DM,CVA,renal disease Hypertension Kidney stones--cystoscopy Asthma GERD Hyperlipidemia Told of an irregular heartbeat --Dr. Anabella brar--neg.ETT Surgical History Surgery Date(Month/Year)
--- OUTSIDE RECORDS SUMMARY | 2024-12-26 16:32 | XMS_ITS ---
Author Organization [facility] Address [address] [place] [address] Care Team Providers Care Outpatient Dietitian Name Role Phone Jayro Banegas MD Primary Care Provider Inocente France Unavailable [phone] Allergies No Known Allergies REASON FOR VISIT Patient presents today for a COLON SCREENING Medications Medication SIG (Take, Route, Frequency, Duration) [...] 1 tablet Orally Once a day Active Vital Signs Temperature 98.2 degrees Fahrenheit 04/01/20 24 Blood pressure systolic 000 mm Hg 04/01/20 24 Blood pressure diastolic 00 mm Hg 024 Height 71 in 04/01/2024 Weight 270 lb 4 oz lbs 04/01/2024 BMI 37.69 kg/m2 04/01/2024 Encounters Encounter Location Date Provider Diagnosis [facility] [address] [place] [phone] 04/01/2024 Inocente Peñaloza Gastroesophageal ref lux disease, esophagitis presence not specified K21.9 ; Encounter for screening for malignant neoplasm of colon Z12.11 and Encounter for screening for malignant neoplasm of rectum Z12.12 Assessments Encounter Date Diagnosis (ICD Code) Assessment Notes Treatment Notes Treatment Clinical Notes Section Notes 04/01/2024 Gastroesophageal reflux disease, esophagitis presence not [...] keep you advised of his progress. 04/01/2024 Encounter for screening for malignant neoplasm [...] keep you advised of his progress. 04/01/2024 Encounter for screening for malignant neoplasm [...] to keep you advised of his progress. Plan Of Treatment Treatment Notes Assessment Notes Gastroesophageal reflux dise ase, esophagitis presence not specified Stop aspirin for 1 week before the procedures Future Test Test Name Order Date UPPER GI ENDOSCOPY 04/01/2024 COLONOSCOPY 04/01/2024 Next Appt Details Follow Up: prn, Reason: Progress Notes * PÉREZ HAMILTONDOB:1960 (63 yo M)Acc No.[id number]:04/01/2024 Progress Notes Patient:?PÉREZ HAMILTON Provider:?Inocente Peñaloza MD :1960???Age:63 Y???Sex:Male Cody e:04/01/2024 Address:[address] [place], [place] [phone] Pcp:Jayro Banegas MD Subjective: * Chief Complaints: * ???Patient presents today fo r a COLON SCREENING * HPI: ???incontinence:? I saw Pérez consultation today for further evaluation of his chronic gastroesophageal reflux and discussion of colorectal cancer screening. ?I met Pérez once in 2017 at which time we had reviewed his need for an upper endoscopy and colonoscopy in relation to chronic reflux and need for screening, respectively. The procedures were scheduled but the patient ultimately canceled and never called back to reschedule them. In any event, he feels well. He enjoys a good appetite. He continued on his daily omeprazole with good relief of heartburn. He does have occasional nocturnal episodes in relation to some dietary indiscretion or eating too close to bedtime. He denies any dysphagia, early satiety, nausea, nor vomiting. His bowel movements have been regular and without any signs of bleeding. He denies any abdominal pain, jaundice, nor unintentional weight loss. He denies any known family history of colon cancer. * ROS:?General/Constitutional:?Change in appetite?denies.?Chills?denies.?Fatigue?denies.?Ophthalmologic:?Comments?all negative.?ENT:?Comments?all negative.?Respiratory:?hemoptysis?denies.?Cough?denies.?Cardiovascular:?Chest pain?denies.?Orthopnea?denies.?Gastrointestinal:?Comments?See HPI for details.?Genitourinary:?Hematuria?denies.?Dysuria?denies.?Musculoskeletal:?Painful joints?denies.?Weakness?denies.?Skin:?Itching?denies.?Rash?denies.?Neurologic:?Headache?denies.?Seizures?denies.?Psychiatric:?Comments?all negative.? * Medical History:? * Surgical History:?No Surgica l History documented. * Hospitalization/Major Diagno stic Procedure:?No Hospitalization History. * Family History:?Father: dece ased, diagnosed with HTN (hypertension), Diabetes, Heart disease.?Mother: , diagnosed with Heart disease, HTN (hypertension), Diabetes.? No family history of liver cancer or colon cancer. * Social History:?Tobacco Use:?Tobacco Use/Smoking?Patient is a: former smoker , How long has it been since you last smoked?: > 10 years.?Drugs/Alcohol:?Alcohol Screen?Points: 1, Interpretation: Negative.?Miscellaneous:?Caffeine: 2-3 cups per day. Marital status: . 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 ???Nonsmoker; no sig alcohol. * Medications:?TakingSymbicort 80-4.5 MCG/ACT Aerosol 1 puff as needed Inhalation every 4 hrsVentolin HFA 108 (90 Base) MCG/ACT Aerosol Solution 1 puff as needed Inhalation every 4 hrsAspir-Low 81 MG Tablet Delayed Release 1 tablet Orally Once a daydilTIAZem HCl 120 MG Tablet as directed Orally Losartan Potassium 50 MG Tablet 1 tablet Orally Once a daySimvastatin 40 MG Tablet 1 tablet in the evening Orally Once a dayMontelukast Sodium 10 MG Tablet 1 tablet Orally Once a dayOmeprazole 20 MG Capsule Delayed Release 1 capsule Orally Once a dayTaking Symbicort 80-4.5 MCG/ACT Aerosol 1 puff as needed Inhalation every 4 hrsTaking Ventolin HFA 108 (90 Base) MCG/ACT Aerosol Solution 1 puff as needed Inhalation every 4 hrsTaking Aspir-Low 81 MG Tablet Delayed Release 1 tablet Orally Once a dayTaking dilTIAZem HCl 120 MG Tablet as directed Orally Taking Losartan Potassium 50 MG Tablet 1 tablet Orally Once a dayTaking Simvastatin 40 MG Tablet 1 tablet in the evening Orally Once a dayTaking Montelukast Sodium 10 MG Tablet 1 tablet Orally Once a dayTaking Omeprazole 20 MG Capsule Delayed Release 1 capsule Orally Once a dayDiscontinuedRamipril Aspir-81 Albuterol Lansoprazole 15 MG Capsule Delayed Release 1 capsule Orally Once a dayMedication List reviewed and reconciled with the patientDiscontinued Ramipril Discontinued Aspir-81 Discontinued Albuterol Discontinued Lansoprazole 15 MG Capsule Delayed Release 1 capsule Orally Once a dayMedication List reviewed and reconciled with the patient * Allergies:?N.K.D.A.yes[Aller gies Verified] Objective: * Vitals:?Wt: 270 lb 4 oz, Ht: 71 in, BMI:37.69 Index, BP: 000/00 mm Hg, Temp: 98.2. * Examination: ???General Examination: ?GENERAL APPEARANCE:?pleasant, well nourished, well developed, in no acute distress.?EYES:?sclera non-icteric.?ORAL CAVITY:?mucosa moist.?NECK/THYROID:?no cervical lymphadenopathy, neck supple.?SKIN:?nonjaundiced, no spider angiomata.?HEART:?S1, S2 normal.?LUNGS:?clear to auscultation bilaterally.?ABDOMEN:?normal bowel sounds, no guarding or rigidity, no guarding or rigidity, no masses palpable, soft, nontender, nondistended.?EXTREMITIES:?no edema.?NEUROLOGIC:?alert and oriented.? Assessment: * Assessment: 1.?Gastroesophageal reflux d isease, esophagitis presence not specified - K21.9 (Primary)?2.?Encounter for screening for malignant neoplasm of colon - Z12.11?3.?Encounter for screening for malignant neoplasm of rectum - Z12.12? Overall, Pérez appears quit e well. Given his age, his never having [...] to keep you advised of his progress. Plan: * Treatment: Notes: Stop aspirin for 1 week before the procedures??2.?Encounter for screening for malignant neoplasm of colon?Procedure: COLONOSCOPY (Ordered for 04/01/2024)* with MACsched for 07/21/24 at 11:30 ammiralax * Procedure Codes:?3017F COLOR ECTAL CA SCREEN DOC [id number] TOBACCO NON-[id number] BP SCR NOT PRFRM REC REASON NOS * Preventive Medicine:? ??Counseling:?Care goal follow-up plan:?Above Normal BMI Follow-up?Giving encouragement to exercise,?BMI management provided?Yes.? * Follow Up:?prn * * Sign off status: Completed true * Provider:?Inocente Peñaloza MD Date:? 024 Generated for Beto nguyen/Karlene/Koryitting on:?12/26/2024 04:31 PM EDT History and Physical Notes * HPI (History of Present Illness) Category Sub-Category Detail Notes Category Not es incontinence I saw Pérez consultation today for further evaluation of his chronic gastroesophageal reflux and discussion of colorectal cancer screening. I met Pérez once in 2017 at which time we had reviewed his need for an upper endoscopy and colonoscopy in relation to chronic reflux and need for screening, respectively. The procedures were scheduled but the patient ultimately canceled and never called back to reschedule them. In any event, he feels well. He enjoys a good appetite. He continued on his daily omeprazole with good relief of heartburn. He does have occasional nocturnal episodes in relation to some dietary indiscretion or eating too close to bedtime. He denies any dysphagia, early satiety, nausea, nor vomiting. His bowel movements have been regular and without any signs of bleeding. He denies any abdominal pain, jaundice, nor unintentional weight loss. He denies any known family history of colon cancer. Examination Category Sub-Category Detail Notes Category Not es General Examination GENERAL APPEARANCE: pleasant , well [...]
== END 2024-12-26 16:13 | disposition home or self-care (01) ==
LOC: HO.HPSW 15:17
PROVIDERS: PCP Internal Medicine; Referring Provider Internal Medicine; Visit Provider Nurse Practitioner Family
DX: J45.909 Unspecified asthma, uncomplicated (principal); R05.9 Cough, unspecified; Z91.09 Other allergy status, other than to drugs and biological substances
CPT/HCPCS: 99204

== ENCOUNTER → 2024-12-26 15:17 | Outpatient (BNVA) | payer BC, SELFPAY | PROVIDERS: PCP Internal Medicine; Referring Provider Internal Medicine; Visit Provider Nurse Practitioner Family | DX: J45.909 Unspecified asthma, uncomplicated (principal); Z91.09 Other allergy status, other than to drugs and biological substances; Z79.899 Other long term (current) drug therapy | CPT/HCPCS: 94640 ==

== ENCOUNTER 2024-12-27 09:42 | Outpatient (REF) | payer BC, SELFPAY ==
--- NOTE | ~2024-12-27 | XR_ITS ---
EXAMINATION: XR CHEST CLINICAL INFORMATION: R05.9 - Cough, unspecified COMPARISON: None available. TECHNIQUE: 2 views of the chest were obtained. FINDINGS: The lungs are well-expanded and clear acute process. Heart size and pulmonary vascularity is normal. No gross bony abnormality seen. XR/XR chest 2V IMPRESSION: Unremarkable chest exam. Electronically signed by: Aric Gloria MD 12/29/2024 07:20 AM EDT RP
[2024-12-27 09:53] LABS: MANUAL DIFF FLAG NO
[2024-12-27 10:18] LABS: Basophils Absolute Auto 0.1 X10*3/uL (0.0-0.2); Basophils Percent Auto 0.7 % (0-2); Eosinophils Absolute Auto 0.7 X10*3/uL (0.0-0.4); Eosinophils Percent Auto 7.6 % (0-4); Hematocrit 42.8 % (42.0-52.0); Hemoglobin 14.7 g/dl (14.0-18.0); Imm Gran Abs Auto 0.05 X10*3/uL (0.00-0.03); Imm Gran Pct Auto 0.5 % (0.0-0.4); Lymphocytes Absolute Auto 1.6 X10*3/uL (1.2-4.9); Lymphocytes Percent Auto 16.6 % (20-40); Mean Corpuscular HGB Conc 34.3 g/dl (31.0-36.0); Mean Corpuscular Hemoglobin 29.8 pg (27.0-33.0); Mean Corpuscular Volume 86.6 fL (80.0-98.0); Mean Platelet Volume 9.7 fL (9.4-12.4); Monocytes Absolute Auto 0.9 X10*3/uL (0.1-1.2); Monocytes Percent Auto 9.2 % (2-11); Neutrophils Absolute Auto 6.3 x10*3/uL (2.0-8.3); Neutrophils Percent Auto 65.4 % (45-73); Platelet Count 320 X10*3/uL (160-400); Red Blood Count 4.94 X10*6/uL (4.60-5.80); Red Cell Distribution Width 13.7 % (11.0-16.0); White Blood Count 9.7 X10*3/uL (4.8-10.8)
[2025-01-01 19:43] LABS: Class Alternaria alternata 0; Class Aspergillus fumigatus 0; Class Bermuda Grass 0; Class Birch 0; Class Cat Dander 0; Class Cladosporium herbarum 0; Class Cockroach 1; Class Common Ragweed 0; Class Cottonwood 0; Class Derm. pterony 2; Class Dermatophagoides farinae 2; Class Dog Dander 0/1; Class Elm 0; Class Maple Box Elder 0; Class Mountain Cedar 0; Class Mouse Urine Protein 0; Class Mugwort 0; Class Oak 0; Class Penicillium crysogenum 0; Class Rough Pigweed 0; Class Sheep Sorrel 0; Class Sycamore 0; Class Timothy Grass 0; Class Walnut Tree 0; Class White Ash 0; Class White Mulberry 0; D001 IgE D pteronyssinus 1.21 kU/L; D002 - IgE D farinae 1.08 kU/L; E001 - IgE Cat Dander <0.10 kU/L; E005 - IgE Dog Dander 0.12 kU/L; E072-IgE Mouse Urine <0.10 kU/L; G002 IgE Bermuda Grass <0.10 kU/L; G006 - IgE Timothy Grass <0.10 kU/L; I006-IgE Cockroach, German 0.59 kU/L; Immunoglobulin E 28 kU/L (<OR=114); M001 IgE Penicillium chrysogen <0.10 kU/L; M002 - IgE Cladosporium herbar <0.10 kU/L; M003 - IgE Aspergillus fumigat <0.10 kU/L; M006 - IgE Alternaria alternat <0.10 kU/L; T001 IgE Maple/Box Elder <0.10 kU/L; T003 IgE Common Silver Birch <0.10 kU/L; T006 - IgE Cedar, Mountain <0.10 kU/L; T007 - IgE Oak, White <0.10 kU/L; T008 IgE Elm, American <0.10 kU/L; T010 - IgE Walnut <0.10 kU/L; T011 - IgE Maple Leaf Sycamore <0.10 kU/L; T014 - IgE Cottonwood <0.10 kU/L; T015 - IgE Ash, White <0.10 kU/L; T070 - IgE White Mulberry <0.10 kU/L; W001 - IgE Ragweed, Short <0.10 kU/L; W006 - IgE Mugwort <0.10 kU/L; W014 IgE Pigweed, Common <0.10 kU/L; W018 IgE Sheep Sorrel <0.10 kU/L
== END 2024-12-27 09:43 | disposition home or self-care (01) ==
LOC: HO.LAB 09:42
PROVIDERS: PCP Internal Medicine; Visit Provider Nurse Practitioner Family
DX: Z91.09 Other allergy status, other than to drugs and biological substances (principal); R05.9 Cough, unspecified
CPT/HCPCS: 36415; 71046; 82785; 85025; 86003

== ENCOUNTER → 2024-12-27 09:55 | Outpatient (BNV) | payer BC, SELFPAY | PROVIDERS: PCP Internal Medicine; Visit Provider Radiology Diagnostic Radiology | DX: R05.9 Cough, unspecified (principal) | CPT/HCPCS: 71046 ==

== ENCOUNTER 2025-02-05 09:54 | Outpatient (REF) | payer BC, SELFPAY ==
--- NOTE | 2025-02-05 09:59 | PFT_ITS ---
Spirometry [] Lung Volumes [] Diffusion Capacity [] Methacholine Challenge [] Flow Volume Loops [] MVV [] MIP/MEP(Max inspiratory pressure/Max expiratory pressure) [] 6 Minute Walk Test [] ABG [] Interpretation [] MTDD
[2025-02-05 10:34] VITALS: PULSE 82; O2SAT 96
--- OUTSIDE RECORDS SUMMARY | 2025-02-05 11:11 | XMS_ITS ---
Author Organization [facility] Address [address] [place] [address] Care Team Providers Care Vp Mobile Products Name Role Phone Jayro Banegas MD Primary Care Provider Inocente France Unavailable [phone] REASON FOR VISIT screening,gerd Problems Problem Type SNOMED Code ICD Code Onset Dates Problem Status W/U Status Risk Notes Problem Diverticular disease of colon (559415289) Diverticulosis of large intestine without perforation or abscess without bleeding (K57.30) Active confirmed Problem Gastroesophageal reflux disease (932438619) Gastroesophageal reflux disease (K21.9) Active confirmed Problem Benign neoplasm of stomach (10664900) Gastric polyps (K31.7) Active confirmed Encounters Encounter Location Date Provider Diagnosis [facility] Outpatient [address] [place] [phone] 07/21/2024 Inocente Peñaloza Colon cancer screeni ng [...] Notes * ADENIKE HAMILTONDOB:1960 (64 yo M)Acc No.[id number]:07/21/2024 EGD and COL/MAC Patient:?ADENIKE HAMILTON Provider:?Inocente Peñaloza MD :1960???Age:63 Y???Sex:Male Cody e:07/21/2024 Address:[address] [place], [place] [id number] Pcp:Jayro Banegas MD Subjective: * Chief Complaints: * ???1. Screening,gerd. * Medical History:? Objective: * Vitals:? Assessment: * Assessment: 1.?Colon cancer screening - Z12.11 (Primary)???2.?Colon polyps - K63.5???3.?Diverticulosis of large intestine without perforation or abscess without bleeding - K57.30???4.?Other hemorrhoids - K64.8???5.?Gastroesophageal reflux disease - K21.9???6.?Other specified disease of esophagus - K22.89???7.?Hiatal hernia - K44.9???8.?Gastric polyps - K31.7??? Plan: * Treatment: * Procedure Codes:?70759 LESIO N REMOVAL COLONOSCOPY, Modifiers: [place] , [address] UPPER GI ENDOSCOPY, BIOPSY * * The named appointment provid er may or may not be the originator of this progress note, and it is not deemed complete until electronically signed by the appointment provider. Sign off status: Pending * Provider:?Inocente Peñaloza MD Date:? 024 Generated for Beto nguyen/Karlene/eTransmitting on:?02/05/2025 11:11 AM EDT
--- OUTSIDE RECORDS SUMMARY | 2025-02-05 11:12 | XMS_ITS ---
Author Organization [facility] Address [address] [place] [phone] Care Team Providers Care Implant Polisher Name Role Phone Jayro Banegas MD Primary Care Provider Inocente France Unavailable [phone] Allergies No Known Allergies REASON FOR VISIT [...] 04/01/2024 Encounters Encounter Location Date Provider Diagnosis [facility] [address] [place] [phone] 04/01/2024 Inocente Peñaloza Gastroesophageal ref lux disease, [...] Notes * PÉREZ HAMILTONDOB:1960 (63 yo M)Acc No.[id number]:04/01/2024 Progress Notes Patient:?PÉREZ HAMILTON Provider:?Inocente Peñaloza MD :1960???Age:63 Y???Sex:Male Cody e:04/01/2024 Address:[address] [place], [place] [phone] Pcp:Jayro Banegas MD Subjective: * Chief Complaints: [...] cups per day. Marital status: . 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 ???Nonsmoker; no sig alcohol. * Medications:?TakingSymbicort [...] Procedure Codes:?3017F COLOR ECTAL CA SCREEN DOC DNS5915M TOBACCO [id number] BP SCR NOT PRFRM REC REASON NOS * Preventive Medicine:? ??Counseling:?Care goal follow-up plan:?Above Normal BMI Follow-up?Giving encouragement to exercise,?BMI management provided?Yes.? * Follow Up:?prn * * Sign off status: Completed true * Provider:?Inocente Peñaloza MD Date:? 024 Generated for Beto nguyen/Karlene/Koryitting on:?02/05/2025 11:12 AM EDT History and Physical Notes * HPI [...]
--- OUTSIDE RECORDS SUMMARY | 2025-02-05 11:12 | XMS_ITS | Patient Health Record ---
Author Organization [facility] Address [address] [place] [address] Care Team Providers Care Refrigeration Service Inspector Name Role Phone Jayro Banegas MD Primary Care Provider Kateya Inocente Soto Unavailable [phone] Allergies No Known Allergies Results Component Value Reference Range Notes Pathology (Not yet reviewed by provider) Interpretation: Performing Lab:[facility], [address] [place] [id number] Notes/Report: Name: Pérez Hazel José Miguel Age/Sex: 63/M : 1960 Unit#: [id number] Attend Dr: Inocente Peñaloza MD Re07/21/24 Status : [facility] Location: [facility] Disch: SPEC : [id number] RECD : 07/21/24-1006 STATUS: DES MURPHY NUM: [id number] DAVID: 07/21/24-[address] [facility] [address]: Inocente Peñaloza MD ENTERED: 07/21/24- [...] Pérez Hazel Age/Sex: 63/M : 1960 Unit#: [id number] Attend Dr: Inocente Peñaloza MD Re07/21/24 Status : [facility] [facility] Location: [facility] Disch: SPEC : [id number] RECD : 07/21/24 STATUS: [facility] MURPHY NUM: [id number] DAVID: 07/21/[address] [facility] [address]: Inocente Peñaloza MD ENTERED: 07/21/24 SP TYPE: Surgical OTHR DR: Jayro Banegas MD ORDERED: HE Stain/6, Gross Micro L4/3, IHC, Special st. 2, H. pylori, AB/PAS Copies To: Jayro Banegas MD [facility] [address] [place] [address] Inocente Peñaloza MD [facility] [address] [place] [address] Signed (si gnature on file) Hung Andrew MD 07/23/24 1433 END OF REPORT Reason For Referral Referring Provider First Name Jayro Referring Provider Last Name Makenzie Referring Provider Speciality Internal M edicine Ref[facility] Referred Provider Inocente Peñaloza Referred Address [address] [place] [place] [address],[facility] [address],[place], [place],[address], Referred Provider Specialty Gastroentero logy General Notes Adwoa Solo 024 11:46:23 AM EDT > requested an [facility] blue ref from Dr Mccann office for [...] Problem Status W/U Status Risk Notes Problem 206076531 Encounter for screening for malignant neoplasm of colon (Z12.11) Active confirmed Problem Diverticular disease of colon (181932500) Diverticulosis of large intestine without perforation or abscess without bleeding (K57.30) Active confirmed Problem Screening for malignant neoplasm of rectum (760239492) Encounter for screening for malignant neoplasm of rectum (Z12.12) Active confirmed Problem Gastroesophageal reflux disease (841655618) Gastroesophageal reflux disease (K21.9) Active confirmed Problem 532246648 Gastroesophageal reflux disease, esophagitis presence not specified (K21.9) Active confirmed Problem Benign neoplasm of stomach (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) Gastric polyps (K31.7) Active confirmed Vital Signs Temperature 98.2 degrees Fahrenheit 04/01/2024 Blood pressure diastolic 00 mm Hg 04/01/2024 Height 71 in 04/01/2024 Blood pressure systolic 000 mm Hg 04/01/2024 Weight 270 lb 4 oz lbs 04/01/2024 BMI 37.69 kg/m2 04/01/2024 Encounters Encounter Location Date Provider Diagnosis [facility] [address] [place], [place] [id number] 07/21/2024 Inocente Peñaloza Colon cancer screeni ng Z12.11 ; Colon polyps K63.5 ; Diverticulosis of large intestine without perforation or abscess without bleeding K57.30 ; Other hemorrhoids K64.8 ; Gastroesophageal reflux disease K21.9 ; Other specified disease of esophagus K22.89 ; Hiatal hernia K44.9 and Gastric polyps K31.7 [facility] [address] [facility] [address] [place] [address] 04/01/2024 Inocente Peñaloza Gastroesophageal ref lux disease, [...] Insured Coverage Start Date Coverage End Date [facility] PROFESSIONAL CLAIMS [address] [place] [address] [id number] ALFONSO PÉREZ Self - patient is the insured Medical (General) History Medical History History ICD Code Denies ND,DM,CVA,renal disease Hypertension Kidney stones--cystoscopy Asthma GERD Hyperlipidemia Told of an irregular heartbeat --Dr. Anabella brar--neg.ETT Surgical History Surgery Date(Month/Year)
== END 2025-02-05 09:55 | disposition home or self-care (01) ==
LOC: HO.RESP 09:54
PROVIDERS: Visit Provider Nurse Practitioner Family
DX: J45.909 Unspecified asthma, uncomplicated (principal)
CPT/HCPCS: 94010; 94640; 94727; 94729

== ENCOUNTER → 2025-02-05 09:59 | Outpatient (BNV) | payer BC, SELFPAY | PROVIDERS: Visit Provider Internal Medicine Pulmonary Disease | DX: J45.909 Unspecified asthma, uncomplicated (principal) | CPT/HCPCS: 94060; 94727; 94729 ==

== ENCOUNTER 2025-06-01 15:48 | Outpatient (AMB) | payer BC, SELFPAY ==
--- OUTSIDE RECORDS SUMMARY | 2024-07-21 05:30 | XMS_ITS ---
Author Organization [facility] Address [address] [place] [phone] Care Team Providers Care Inspector And Unloader Name Role Phone Makenzie (RETIRED) Jayro HORAN Primary Care Provide Inocente Stevens Unavailable [phone] REASON FOR VISIT screening,gerd Problems Problem Type SNOMED Code ICD Code Onset Dates Problem Status W/U Status Risk Notes Problem Diverticular disease of colon (934431504) Diverticulosis of large intestine without perforation or abscess without bleeding (K57.30) Active confirmed Problem Gastroesophageal reflux disease (825673277) Gastroesophageal reflux disease (K21.9) Active confirmed Problem Benign neoplasm of stomach (06382869) Gastric polyps (K31.7) Active confirmed Encounters Encounter Location Date Provider Diagnosis [facility] [place] [address] [place] [phone] 07/21/2024 Inocente Peñaloza Colon cancer screeni ng [...] Notes * ADENIKE HAMILTONDOB:1960 (64 yo M)Acc No.[id number]:07/21/2024 EGD and COL/MAC Patient: ADENIKE BENTON Provider: Jessica Peñaloza MD :1960 A ge:63 Y S ex:Male Date:07/21/2024 Address:[address] [place], [place] [phone] Pcp:Jayro Banegas (RETIRED )MD Subjective: * Chief [...] 5385 LESION REMOVAL COLONOSCOPY, Modifiers: [place] , [address] UPPER GI ENDOSCOPY, BIOPSY * * The named appointment provid er may or may not be the originator of this progress note, and it is not deemed complete until electronically signed by the appointment provider. Sign off status: Pending * Provider: Jessica Peñaloza MD Date: 1 Generated for Beto nguyen/Karlene/Koryitting on: 0 06/01/2025 04:11 PM EDT
--- NOTE | 2025-06-01 15:56 | MHC.PC.OV ---
Vital Signs 06/01/25 16:02 Height 5 ft 11 in Weight 129.274 kg BMI 39.7 BP 142/90 H Respiration 16 Pulse 85 Pulse Source Pulse Oximeter Temp 97.8 F Temp Source Temporal Artery Scan Pulse Oximetry (%) 96 Oxygen Delivery Method Room Air Intake Visit Reasons: Routine/ Dr Banegas - see comments Component Overhaul Operator Required: No Accompanied by: Self / Same As Patient Allergies amoxicillin (AMOXICILLIN) Allergy (Mild, Verified 06/01/25 15:56) RASH Medication List - Last Reconciled 06/01/25 by NADIA Alejandre albuterol sulfate 2.5 mg (3 mL) inhalation Q4H PRN albuterol sulfate 90 mcg/actuation 1 puff inhalation TID PRN aspirin 81 mg PO DAILY budesonide-formoterol 160-4.5 mcg/actuation (Symbicort) 1 inh inhalation TID diltiazem HCl ER (DILT-XR) 120 mg PO DAILY ipratropium-albuterol 0.5 mg-3 mg(2.5 mg base)/3 mL 3 mL inhalation Q6H PRN losartan 50 mg PO DAILY montelukast 10 mg PO DAILY nitroglycerin mg sublingual omeprazole 20 mg PO DAILY ramipril 10 mg PO DAILY simvastatin 40 mg PO BEDTIME HPI HPI Comments History of Present Illness Details 64 y/o male with history of htn, hld, gerd, irregular heart beat presents to the office for management of chronic conditions and to establish care. Asthma- senveral exacerbations last year. Upcoming pft and follows with pulm. Last prednisone several months ago. Former smoker 20 years ago and chronic occ cough. Compliant with maintenance inhalers. Irregular heart beat - denies afib. Unclear cardiology but followed last year. On dilt. Asymptomatic. Positive hep C antibody. Never viral load in system. Never treated per pt. HTN- on dilt, ramipril, losartan. HLD- on simvastatin health maintenance: Just underwent colonoscopy Concerns: Obesity- bmi 39 ROS: General: No fevers, malaise, unintentional weight loss HEENT: No blurred vision, diplopia. No sore throat, nasal congestion, rhinorrhea, sinus pain, ear pain Cardiovascular: No chest pain, palpitations, or leg edema Respiratory: No shortness of breath, wheezing, cough GI: No abdominal pain, nausea, vomiting, diarrhea, constipation, melena, hematochezia : No dysuria, hematuria, increased urinary frequency, decreased urinary output MSK: No myalgia, back pain Neuro: No headaches, weakness, paresthesias Skin: No rashes or lesions EXAM: Constitutional - Awake and Alert, No apparent distress Eyes - PERRL Cardiovascular - S1S2, RRR, No edema Respiratory - Normal lung expansion, Normal respiratory effort, No respiratory distress, CTA bilaterally Extremities - no calf tenderness bilaterally, no swelling Skin - Warm/Dry Neurological - Alert & oriented x3 Psychological - Appropriate affect [facility] Medical History (Updated 06/07/25 @ 15:27 by NADIA Alejandre) Dysrhythmia Hepatitis C Asthma Allergies Elevated cholesterol HTN (hypertension) Surgical History (Updated 05/08/25 @ 10:48 by Clarissa Herrera) Total knee replacement status Hx of colonoscopy (~07/21/24) Social History (Updated 12/26/24 @ 15:38 by Emily Karimi LPN) Are you a primary day care home provider to a significant other at home: No Do you presently have visiting nurse or other home services: No Patient Tobacco Use Status: Former Tobacco user Cigarette Packs Per Day: 1 Years Smoked: 20 Questionnaire PHQ-9 Over the last 2 weeks, how often have you been bothered by any of the following problems? 1. Little interest or pleasure in doing things: not at all 2. Feeling down, depressed, or hopeless: several days 3. Trouble falling or staying asleep, or sleeping too much: more than half the days 4. Feeling tired or having little energy: more than half the days 5. Poor appetite or overeating: more than half the days 6. Feeling bad about yourself - or that you are a failure or have let yourself or your family down: several days 7. Trouble concentrating on things, such as reading the newspaper or watching television: several days 8. Moving or speaking so slowly that other people could have noticed. Or the opposite - being so fidgety or restless that you have been moving around a lot more than usual: not at all 9. Thoughts that you would be better off or of hurting yourself in some way: not at all Total score: 9 Source: Developed by Drs. Inocente Stevenson, Shalini Bob Skinner and colleagues, with an educational dottie from [employer]. Thrive Questionnaire Date Thrive assessed: 06/01/25 I am a: Patient What is your living situation today?: I have a steady place to live Within the past 12 months, did the food you bought not last and you didn't have the money to get more?: Never true Within the past 12 months, did you worry whether your food would run out before you got money to buy more?: Never true Do you have trouble paying for medicines?: No Do you have trouble getting transportation to medical appointments?: No Do you have trouble paying your heating and electricity bill?: No Do you have trouble taking care of your child, family member or friend?: No Do you have trouble with day-to-day activities such as bathing, preparing meals, shopping, managing finances, etc.?: No Are you currently unemployed and looking for a job?: No Are you interested in more education?: No Please select the resources that you would like help with: None THRIVE Score: 0 ESTHELA-7 AMB Questionnaire ESTHELA-7 Date ESTHELA - 7 assessed: 06/01/25 Feeling nervous, anxious, or on edge: 0 = Not at all Not being able to stop or control worryin = Not at all Worrying too much about different things: 0 = Not at all Trouble relaxin = Several days Being so restless that it is hard to sit still: 0 = Not at all Becoming easily annoyed or irritable: 1 = Several days Feeling afraid as if something awful might happen: 0 = Not at all Total ESTHELA-7 score (0-4 normal; 5-9 mild; 10-14 moderate; 15-21 severe): 2 Source: Developed by Drs. Inocente Stevenson, Bob Oliver and colleagues, with an educational dottie from [employer]. Physical exam (Primary Care) Vital Signs: Last Vital Signs Temp 97.8 F 06/01/25 16:02 Pulse 85 06/01/25 16:02 Resp 16 06/01/25 16:02 BP 142/90 H 06/01/25 16:02 Pulse Ox 96 06/01/25 16:02 Oxygen Delivery Method Room Air 06/01/25 16:02 BMI result Body Mass Index 39.7 Tobacco/Smoking Status: Tobacco use Status Patient Tobacco Use Status Former Tobacco user 06/01/25 16:04 PHQ-9: PHQ-9 Score PHQ-9: Total score 9 06/01/25 16:14 Thrive Assessment: Date of Thrive Assessment Date Thrive assessed 06/01/25 06/01/25 16:06 Coding Level of Care Code New Pt Level 4 (29870) Complex EM visit Add On G2211 Diagnoses Dysrhythmia I49.9 HTN (hypertension) I10 Asthma J45.909 Severe obesity E66.01 Assessment & Plan Assessment & Plan (1) Dysrhythmia: Code(s): I49.9 - Cardiac arrhythmia, unspecified Category: Medical Plan: Asymptomatic. Obtain records. Continue dilt (2) HTN (hypertension): Code(s): I10 - Essential (primary) hypertension Category: Medical Plan: Controlled. Continue therapies (3) Asthma: Code(s): J45.909 - Unspecified asthma, uncomplicated Category: Medical Plan: Stable. Complete PFT as ordered and follow with pulm. Continue maintenance inhalers and albuterol as needed (4) Severe obesity: Code(s): E66.01 - Morbid (severe) obesity due to excess calories Category: Medical Plan: Weight loss efforts encouraged. Counseled on healthy diet and exercise. Check TSH. Contact office for referrals if desired Plan Follow up in 6 months. Labs to be completed as ordered Orders: Orders Basic Metabolic Panel 06/01/25 B19.20 - Unspecified viral hepatitis C without hepatic coma, E66.01 - Morbid (severe) obesity due to excess calories, I10 - Essential (primary) hypertension, J45.909 - Unspecified asthma, uncomplicated, R06.83 - Snoring Complete Blood Count Auto Diff 06/01/25 B19.20 - Unspecified viral hepatitis C without hepatic coma, E66.01 - Morbid (severe) obesity due to excess calories, I10 - Essential (primary) hypertension, J45.909 - Unspecified asthma, uncomplicated, R06.83 - Snoring Hemoglobin A1c 06/01/25 B19.20 - Unspecified viral hepatitis C without hepatic coma, E66.01 - Morbid (severe) obesity due to excess calories, I10 - Essential (primary) hypertension, J45.909 - Unspecified asthma, uncomplicated, R06.83 - Snoring Prostate Specific Antigen 06/01/25 B19.20 - Unspecified viral hepatitis C without hepatic coma, E66.01 - Morbid (severe) obesity due to excess calories, I10 - Essential (primary) hypertension, J45.909 - Unspecified asthma, uncomplicated, R06.83 - Snoring TSH reflex Free T4 06/01/25 B19.20 - Unspecified viral hepatitis C without hepatic coma, E66.01 - Morbid (severe) obesity due to excess calories, I10 - Essential (primary) hypertension, J45.909 - Unspecified asthma, uncomplicated, R06.83 - Snoring Hepatitis C Viral Load 06/01/25 B19.20 - Unspecified viral hepatitis C without hepatic coma Lipid Panel 06/01/25 B19.20 - Unspecified viral hepatitis C without hepatic coma, E66.01 - Morbid (severe) obesity due to excess calories, I10 - Essential (primary) hypertension, J45.909 - Unspecified asthma, uncomplicated, R06.83 - Snoring Liver Panel 06/01/25 B19.20 - Unspecified viral hepatitis C without hepatic coma, E66.01 - Morbid (severe) obesity due to excess calories, I10 - Essential (primary) hypertension, J45.909 - Unspecified asthma, uncomplicated, R06.83 - Snoring Hepatitis B,C Profile 06/01/25 R76.8 - Other specified abnormal immunological findings in serum
[2025-06-01 16:02] VITALS: BP 142/90; PULSE 85; RESP 16; TEMP 36.6; O2SAT 96; BMI 39.7
== END 2025-06-01 16:27 | disposition home or self-care (01) ==
LOC: HO.HMCHD 15:48
PROVIDERS: PCP Physician Assistant; Visit Provider Physician Assistant
DX: I49.9 Cardiac arrhythmia, unspecified (principal); I10 Essential (primary) hypertension; J45.909 Unspecified asthma, uncomplicated; E66.01 Morbid (severe) obesity due to excess calories

== ENCOUNTER 2025-07-11 10:27 | Outpatient (REF) | payer BC, SELFPAY ==
--- OUTSIDE RECORDS SUMMARY | 2024-07-21 05:30 | XMS_ITS ---
Author Organization [facility] Address [address] [place] [phone] Care Team Providers Care Custom Designer Name Role Phone Makenzie (RETIRED) Jayro HORAN Primary Care Provide Inocente Stevens Unavailable [phone] REASON FOR VISIT screening,gerd Problems Problem Type SNOMED Code ICD Code Onset Dates Problem Status W/U Status Risk Notes Problem Diverticular disease of colon (391591033) Diverticulosis of large intestine without perforation or abscess without bleeding (K57.30) Active confirmed Problem Gastroesophageal reflux disease (600890836) Gastroesophageal reflux disease (K21.9) Active confirmed Problem Benign neoplasm of stomach (70628109) Gastric polyps (K31.7) Active confirmed Encounters Encounter Location Date Provider Diagnosis [facility] [place] [address] [place] [phone] 07/21/2024 Inocente Peñaloza Colon cancer screeni ng [...] Notes * ADENIKE HAMILTONDOB:1960 (64 yo M)Acc No.[id number]:07/21/2024 EGD and COL/MAC Patient: ADENIKE BENTON Provider: Jessica Peñaloza MD :1960 A ge:63 Y S ex:Male Date:07/21/2024 Address:[address] [place], [place] [phone] Pcp:Jayro Banegas (RETIRED )MD Subjective: * Chief Complaints: * 1 . Screening,gerd. * Medical History: Objective: * Vitals: Assessment: * Assessment: 1. C olon cancer [...] astric polyps - K31.7 ? Plan: * Treatment: * Procedure Codes: 4 5385 LESION REMOVAL COLONOSCOPY, Modifiers: [place] , [address] UPPER GI ENDOSCOPY, BIOPSY * * The named appointment provid er may or may not be the originator of this progress note, and it is not deemed complete until electronically signed by the appointment provider. Sign off status: Pending * Provider: Jessica Peñaloza MD Date: 1 Generated for Beto nguyen/Karlene/Koryitting on: 0 07/11/2025 10:29 AM EDT
--- OUTSIDE RECORDS SUMMARY | 2025-07-11 10:29 | XMS_ITS ---
Author Name CRISP Organization Unknown Encounters Encounter Type Encounter Reason Primary Diagnosis Location Date Emergency COVID + [facility] 01/12/2022 Care Team Organization Name Specialty Phone Email Start Date End Da te [facility] VERIFY,PCP Primary Care 2 06/02/2024 [facility] PCP VERIFY Primary Care 2 01/12/2022
--- OUTSIDE RECORDS SUMMARY | 2025-07-11 10:29 | XMS_ITS | Patient Health Record ---
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, [address] [place] [phone] Notes/Report: Reason For Referral No Information Medications Medication SIG (Take, Route, Frequency, Duration) [...] Problem Status W/U Status Risk Notes Problem 014811797 Encounter for screening for malignant neoplasm of colon (Z12.11) Active confirmed Problem Diverticular disease of colon (909569020) Diverticulosis of large intestine without perforation or abscess without bleeding (K57.30) Active confirmed Problem Screening for malignant neoplasm of rectum (446293300) Encounter for screening for malignant neoplasm of rectum (Z12.12) Active confirmed Problem Gastroesophageal reflux disease (834158080) Gastroesophageal reflux disease (K21.9) Active confirmed Problem 532658507 Gastroesophageal reflux disease, esophagitis presence not specified (K21.9) Active confirmed Problem Benign neoplasm of stomach (88405158) Gastric polyps (K31.7) Active confirmed Encounters Encounter Location Date Provider Diagnosis [facility] [address] [place] [id number] 07/21/2024 Inocente Peñaloza Colon cancer screeni ng [...] Insured Coverage Start Date Coverage End Date [facility] PROFESSIONAL CLAIMS [address] [place] [address] [id number] ADENIKE HAMILTON Self - patient is the insured Medical (General) History Medical History History ICD Code Denies [place],DM,CVA,renal disease Hypertension Kidney stones--cystoscopy Asthma GERD Hyperlipidemia Told of an irregular heartbeat --Dr. Anabella brar--neg.ETT Surgical History Surgery Date(Month/Year)
[2025-07-11 10:48] LABS: MANUAL DIFF FLAG NO
[2025-07-11 11:35] LABS: Hematocrit 44.0 % (42.0-52.0); Hemoglobin 14.5 g/dl (14.0-18.0); Imm Gran Abs Auto 0.06 X10*3/uL (0.00-0.03); Imm Gran Pct Auto 0.6 % (0.0-0.4); Lymphocytes Absolute Auto 1.6 X10*3/uL (1.2-4.9); Mean Corpuscular HGB Conc 33.0 g/dl (31.0-36.0); Mean Corpuscular Hemoglobin 29.9 pg (27.0-33.0); Mean Corpuscular Volume 90.7 fL (80.0-98.0); NRBC Abs Auto 0.000 X10*3/uL (0.0-0.012); NRBC Pct Auto 0.0 /100WBC (0.0-0.2); Platelet Count 337 X10*3/uL (160-400); Red Blood Count 4.85 X10*6/uL (4.60-5.80); White Blood Count 9.3 X10*3/uL (4.8-10.8)
[2025-07-11 12:08] LABS: Alanine Aminotransferase 78 U/L (0-40); Albumin Level 4.6 g/dL (3.5-5.0); Alkaline Phosphatase 122 U/L (39-117); Anion Gap 9 (12-20); Aspartate Amino Transferase 41 U/L (5-37); Blood Urea Nitrogen 13 mg/dL (9-16); Calcium 9.9 mg/dL (8.4-10.2); Carbon Dioxide 30 mmol/L (22-29); Chloride 108 mmol/L (96-108); Cholesterol 139 mg/dL (<200); Estimated Glomerular Filt Rate > 60; HDL Cholesterol 37 mg/dL (>40); Potassium 5.0 mmol/L (3.3-5.1); Sodium 142 mmol/L (135-145); Total Protein 7.5 g/dL (6.5-8.0); Triglycerides 122 mg/dL (<150)
[2025-07-11 12:20] LABS: Prostate Specific Antigen 1.38 ng/mL (<0.05-4.0)
[2025-07-13 04:17] LABS: HBS Num1 0.04 mIU/mL (0-7.99); HBc Num1 0.03 S/CO (0.00-0.79); HBsAGNum1 0.30 S/CO (0.00-0.99); Hepatitis B Surface Antigen Negative (Negative); ~HepC Num1 0.06 S/CO (0.00-0.79); ~Hepatitis B Surface Antibody NONREACTIVE (Nonreactive); ~Hepatitis C Antibody Nonreactive (Nonreactive)
[2025-07-14 14:58] LABS: HCV Log PCR <1.18 NOT DETECTED Log IU/mL (NOT DETECTED); HepC Viral Load <15 NOT DETECTED IU/mL (NOT DETECTED)
== END 2025-07-11 10:28 | disposition home or self-care (01) ==
LOC: HO.LAB 10:27
PROVIDERS: PCP Physician Assistant; Visit Provider Physician Assistant
DX: Z12.5 Encounter for screening for malignant neoplasm of prostate (principal); Z13.1 Encounter for screening for diabetes mellitus; I10 Essential (primary) hypertension; B19.20 Unspecified viral hepatitis C without hepatic coma; J45.909 Unspecified asthma, uncomplicated; R06.83 Snoring; E66.01 Morbid (severe) obesity due to excess calories; R76.8 Other specified abnormal immunological findings in serum
CPT/HCPCS: 36415; 80048; 80061; 80076; 83036; 84153; 84443; 85025; 86704; 86706; 86803; 87340; 87522

== ENCOUNTER 2025-08-05 08:45 | Outpatient (AMB) | payer BC, SELFPAY ==
--- OUTSIDE RECORDS SUMMARY | 2024-07-21 05:30 | XMS_ITS ---
Author Organization [facility] Address [address] [place] [phone] Care Team Providers Care Weasand Trimmer Name Role Phone Makenzie (RETIRED) Jayro HORAN Primary Care Provide nIocente Stevens Unavailable [phone] REASON FOR VISIT screening,gerd Problems Problem Type SNOMED Code ICD Code Onset Dates Problem Status W/U Status Risk Notes Problem Diverticular disease of colon (189545263) Diverticulosis of large intestine without perforation or abscess without bleeding (K57.30) Active confirmed Problem Gastroesophageal reflux disease (732792036) Gastroesophageal reflux disease (K21.9) Active confirmed Problem Benign neoplasm of stomach (86565412) Gastric polyps (K31.7) Active confirmed Encounters Encounter Location Date Provider Diagnosis [facility] Out[place] [address] [place] [phone] 07/21/2024 Inocente Peñaloza Colon cancer screeni ng [...] Notes * ADENIKE HAMILTONDOB:1960 (64 yo M)Acc No.[id number]:07/21/2024 EGD and COL/MAC Patient: ADENIKE BENTON Provider: Jessica Peñaloza MD :1960 A ge:63 Y S ex:Male Date:07/21/2024 Address:[address] [place], [place] [phone] Pcp:Jayro Banegas (RETIRED )MD Subjective: * Chief [...] 5385 LESION REMOVAL COLONOSCOPY, Modifiers: [place] , [address] UPPER GI ENDOSCOPY, BIOPSY * * The named appointment provid er may or may not be the originator of this progress note, and it is not deemed complete until electronically signed by the appointment provider. Sign off status: Pending * Provider: Jessica Peñaloza MD Date: Generated for Beto nguyen/Karlene/Koryitting on: 09:21 AM EDT
--- NOTE | 2025-08-05 08:48 | MHC.OFFVIS ---
Vital Signs 08/05/25 08:50 Height 5 ft 11 in Weight 286 lb 2 oz BMI 39.9 BP 156/82 H Blood Pressure Location Rt brachial Position Sitting Pulse 86 Pulse Source Pulse Oximeter Pulse Oximetry (%) 94 Oxygen Delivery Method Room Air Intake Visit Reasons: Asthma Allergies amoxicillin (AMOXICILLIN) Allergy (Mild, Verified 08/05/25 08:52) RASH HPI HPI Asthma: Details: Pérez is a pleasant 64 year old male, former 20 pack year smoker, quit 20 years ago with underlying asthma, HTN and GERD. At the last visit in December patient treated with Vantin for bronchitic symptoms with overall improvements in dyspnea and cough however not resolution of cough. He continues to report chronic cough with greenish yellow sputum and more recently feels increased congestion. He does report multiple sick contacts. Denies fevers, chills, wheezing or chest tightness. Prior chest xray and PFT unremarkable. Denies further imaging. Previously cathleen not using Symbicort consistently likely contributing to dyspnea and feels dyspnea is considerably less with use. He has been evaluated by cardiology [facility] with reportedly normal stress test and cardiac cath. He denies any visits to urgent care or hospitalizations related to respiratory distress since the last visit. Of note, patient also reports ongoing symptoms suggestive of DAYANNA with nonrestorative sleep, apneic events, loud snoring and daytime fatigue. Denies prior sleep study. [facility] Medical History (Updated 08/05/25 @ 09:25 by Jacqueline Jeter NP) Dysrhythmia Hepatitis C Asthma Allergies Elevated cholesterol HTN (hypertension) Surgical History (Updated 05/08/25 @ 10:48 by Clarissa Herrera) Total knee replacement status Hx of colonoscopy (~07/21/24) Social History Are you a primary day care teacher to a significant other at home: No Do you presently have visiting nurse or other home services: No Patient Tobacco Use Status: Former Tobacco user Cigarette Packs Per Day: 1 Years Smoked: 20 Review of Systems Const Denies chills, Denies excessive sweating, Denies fever(s), Denies headache(s) and Denies night sweats Eyes Denies dry eyes, Denies irritation and Denies itchy eyes ENT Reports Normal hearing present, Denies headache(s), Denies nasal congestion, Denies nasal discharge, Denies post nasal drip and Denies sore throat Card Denies chest pain, Denies chest pain at rest, Denies chest pain with activity, Denies claudication, Denies leg edema, Reports dyspnea on exertion, Denies orthopnea and Denies paroxysmal nocturnal dyspnea Resp Reports change in phlegm color, Reports chest congestion, Reports cough, Denies hemoptysis, Reports excessive phlegm production, Denies pain on inspiration, Denies pain with cough, Reports dyspnea on exertion, Denies stridor and Reports wheezing Musc Denies myalgias Neuro Reports Normal hearing present and Denies headache(s) Endo Denies excessive sweating Cas/Lymph Denies lymphadenopathy Aller/Immun Denies itchy eyes, Denies seasonal rhinorrhea and Reports wheezing Physical Exam Vital Signs: Last Vital Signs Pulse 86 08/05/25 08:50 BP 156/82 H 08/05/25 08:50 Pulse Ox 94 08/05/25 08:50 Oxygen Delivery Method Room Air 08/05/25 08:50 BMI result Body Mass Index 39.9 Const General: cooperative, healthy appearing, comfortable, no acute distress, well developed and alert Nutritional Appearance: obese Orientation/consciousness: patient oriented x3 Limitations: no limitations HEENT Head: Yes normal to inspection, Yes normocephalic and Yes atraumatic Ears: hearing grossly normal bilaterally and external ears normal Eyes General: appearance normal, both eyes and all related structures Eyelids: Yes eyelids normal Sclerae: sclerae normal EOM: EOMs intact bilaterally Neck Neck: Yes normal visual inspection and Yes no lymphadenopathy Lymphatic: no lymphadenopathy noted Chest Chest palpation & inspection: normal inspection of the chest Resp Effort & Inspection: normal respiratory effort, able to speak in complete sentences, no audible wheezes, no cough, no stridor, not tachypneic, no tripod positioning and no use of accessory muscles Auscultation: clear to auscultation bilaterally Cardio Jugular venous distension: no JVD Rate: regular rate Rhythm: regular rhythm Skin Other: warm, dry General skin exam: no rashes or lesions noted Neuro General: patient oriented x3 Cranial nerves: Yes Normal hearing present Cognition (Neuro): normal cognition Gait exam (Neuro): Normal gait present Extrem General: Yes normal to inspection, Yes capillary refill normal, Yes no clubbing, cyanosis or edema and Yes no pedal edema Psych Appearance: grossly normal and well kempt Speech and movement: Normal speech and movement present and Clear speech present Affect: normal affect Attitude: cooperative Thought process: Normal thought process present Thought content: Normal thought content present Insight: Good insight present (Psych) Judgement: Good judgement present (Psych) Assessment & Plan Assessment & Plan (1) Asthma: Code(s): J45.909 - Unspecified asthma, uncomplicated Category: Medical (2) Cough: Code(s): R05.9 - Cough, unspecified Category: Medical (3) Environmental allergies: Code(s): Z91.09 - Other allergy status, other than to drugs and biological substances Category: Medical (4) Daytime somnolence: Code(s): R40.0 - Somnolence Category: Medical (5) Loud snoring: Code(s): R06.83 - Snoring Category: Medical Plan Will treat bronchitic symptoms with doxycycline. He is aware to call if symptoms do not improve. Prior CXR unremarkable. Will send for chest CT for chronic cough to assess for any underlying parenchymal conditions. Patient reports symptoms suggestive of DAYANNA, will send for home sleep study. All questions were answered and patient is in agreement of plan. Will follow up in 10-12 weeks or sooner if needed. Orders: Orders CT chest wo IV con Today R05.9 - Cough, unspecified RT home sleep study Today R06.83 - Snoring, R40.0 - Somnolence Medications: New doxycycline hyclate 100 mg PO BID 14 caps 0RF albuterol sulfate 90 mcg/actuation 1 puff inhalation TID PRN 1 ea 3RF shortness of breath or wheezing Refilled ipratropium-albuterol 0.5 mg-3 mg(2.5 mg base)/3 mL 3 mL inhalation Q6H PRN 180 mL 3RF wheezing Coding Level of Care Code Est Pt Level 4 (99822) Diagnoses Asthma J45.909 Cough R05.9 Environmental allergies Z91.09 Daytime somnolence R40.0 Loud snoring R06.83
[2025-08-05 08:50] VITALS: BP 156/82; PULSE 86; O2SAT 94; BMI 39.9
--- OUTSIDE RECORDS SUMMARY | 2025-08-05 09:22 | XMS_ITS | Patient Health Record ---
Author Organization [facility] Address [address] [place] [id number] Care Team Providers Care Behavioral Interventionist Name Role Phone Makenzie (RETIRED) Jayro HORAN Primary Care Provide r Inocente Wetzel Unavailable [phone] Allergies No Known Allergies Reason For Referral No Information Medications Medication SIG (Take, Route, Frequency, Duration) Notes Start Date End Date Status Symbicort 80-4.5 MCG/ACT 1 puff as neede d Inhalation every 4 hrs Active Omeprazole 20 MG 1 capsule Orally Onc e a day; Duration: 30 day(s) 10/20/2016 Active Ventolin HFA 108 (90 Base) MCG/ACT 1 puff as needed Inhalation every 4 hrs Active Aspir-Low 81 MG 1 tablet Orally Once a day; Duration: 30 day(s) Active dilTIAZem HCl 120 MG as directed Orally Active Losartan Potassium 50 MG 1 tablet Orally Once a day; Duration: 30 day(s) Active Simvastatin 40 MG 1 tablet in the even ing Orally Once a day Active Montelukast Sodium 10 MG 1 tablet Orally Once a day Active Immunizations Vaccine Route Administration Date Status Comme nts Influenza Unknown 08/07/2023 Administered Problems Problem Type SNOMED Code ICD Code Onset Dates Problem Status W/U Status Risk Notes Problem Screening for malignant neoplasm of colon (512897601) Encounter for screening for malignant neoplasm of colon (Z12.11) Active confirmed Problem Diverticular disease of colon (311331877) Diverticulosis of large intestine without perforation or abscess without bleeding (K57.30) Active confirmed Problem Screening for malignant neoplasm of rectum (735518378) Encounter for screening for malignant neoplasm of rectum (Z12.12) Active confirmed Problem Gastroesophageal reflux disease (459317541) Gastroesophageal reflux disease (K21.9) Active confirmed Problem Gastroesophageal reflux disease (760390768) Gastroesophageal reflux disease, esophagitis presence not specified (K21.9) Active confirmed Problem 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) Gastric polyps (K31.7) Active confirmed Plan Of Treatment Pending Test Test Name Order Date Pathology 07/21/2024 Future Test Test Name Order Date UPPER GI ENDOSCOPY 10/20/2016 COLONOSCOPY 10/20/2016 UPPER GI ENDOSCOPY 04/01/2024 COLONOSCOPY 04/01/2024 Insurance Providers Payer Name Payer Address Payer Phone Subscriber Number Group Number Insured Name Patient Relationship to Insured Coverage Start Date Coverage End Date [facility] [employer] [facility] [address] [place] [address] [phone] [id number] ADENIKE HAMILTON Self - patient is the insured Medical (General) History Medical History History ICD Code Denies [place],DM,CVA,renal disease Hypertension Kidney stones--cystoscopy Asthma GERD Hyperlipidemia Told of an irregular heartbeat --Dr. Anabella brar--neg.ETT Surgical History Surgery Date(Month/Year)
== END 2025-08-05 09:19 | disposition home or self-care (01) ==
LOC: HO.HPSW 08:45
PROVIDERS: PCP Physician Assistant; Visit Provider Nurse Practitioner Family
DX: J45.909 Unspecified asthma, uncomplicated (principal); R05.9 Cough, unspecified; Z91.09 Other allergy status, other than to drugs and biological substances; R40.0 Somnolence; R06.83 Snoring
CPT/HCPCS: 99214

== ENCOUNTER 2025-09-26 09:51 | Outpatient (REF) | payer BC, SELFPAY ==
--- OUTSIDE RECORDS SUMMARY | 2024-07-21 04:30 | XMS_ITS ---
Author Organization [facility] Address [address] [place] [phone] Care Team Providers Care Plant Ecologist Name Role Phone Makenzie (RETIRED) Jayro HORAN Primary Care Provide Inocente Stevens Unavailable [phone] REASON FOR VISIT screening,gerd Problems Problem Type SNOMED Code ICD Code Onset Dates Problem Status W/U Status Risk Notes Problem Diverticular disease of colon (671804403) Diverticulosis of large intestine without perforation or abscess without bleeding (K57.30) Active confirmed Problem Gastroesophageal reflux disease (918351128) Gastroesophageal reflux disease (K21.9) Active confirmed Problem 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) Gastric polyps (K31.7) Active confirmed Encounters Encounter Location Date Provider Diagnosis [facility] [place] [address] [place] [phone] 07/21/2024 Inocente Peñaloza Colon cancer screeni ng Z12.11 ; Colon polyps K63.5 ; Diverticulosis of large intestine without perforation or abscess without bleeding K57.30 ; Other hemorrhoids K64.8 ; Gastroesophageal reflux disease K21.9 ; Other specified disease of esophagus K22.89 ; Hiatal hernia K44.9 and Gastric polyps K31.7 Assessments Encounter Date Diagnosis (ICD Code) Assessment Notes Treatment Notes Treatment Clinical Notes Section Notes 07/21/2024 Colon cancer screening (ICD-10 - Z12.11) 07/21/2024 Colon polyps (ICD-10 - K63.5) 07/21/2024 Diverticulosis of large intestine without perforation or abscess without bleeding (ICD-10 - K57.30) 07/21/2024 Other hemorrhoids (ICD-10 - K64.8) 07/21/2024 Gastroesophageal reflux disease (ICD-10 - K21.9) 07/21/2024 Other specified disease of esophagus (ICD-10 - K22.89) 07/21/2024 Hiatal hernia (ICD-10 - K44.9) 07/21/2024 Gastric polyps (ICD-10 - K31.7) Plan Of Treatment No Information Progress Notes * ADENIKE HAMILTONDOB:1960 (64 yo M)Acc No.[id number]:07/21/2024 EGD and COL/MAC Patient: ADENIKE BENTON Provider: Jessica Peñaloza MD :1960 A ge:63 Y S ex:Male Date:07/21/2024 Address:[address] [place], [place] [id number] Pcp:Jayro Banegas (RETIRED )MD Subjective: * Chief Complaints: * S creening,gerd Assessment: * Assessment: 1. C olon cancer screening - Z12.11 (Primary) 2 . C olon polyps - K63.5? 3. D iverticulosis of large intestine without perforation or abscess without bleeding - K57.30 4 . O ther hemorrhoids - K64.8 5 . G astroesophageal reflux disease - K21.9 6 . O ther specified disease of esophagus - K22.89? 7. H iatal hernia - K44.9 8 . G astric polyps - K31.7 ? Plan: * Procedure Codes: 4 5385 LESION REMOVAL COLONOSCOPY, [place]: [place] [address] UPPER GI ENDOSCOPY, BIOPSY Billing Information: * Procedure Codes: 24338 LESION REMOVAL COLONOSCOPY. [place]: [place] [address] UPPER GI ENDOSCOPY, BIOPSY. * The named appointment provid er may or may not be the originator of this progress note, and it is not deemed complete until electronically signed by the appointment provider. Sign off status: Pending * Provider: Jessica Peñaloza MD Date: Generated for Beto nguyen/Karlene/Regulosmitting on: 11/27/2024 09:53 AM EST
--- NOTE | ~2025-09-26 | CT_ITS ---
CLINICAL HISTORY: R05.9 - Cough, unspecified CT CHEST WITHOUT CONTRAST Comparison: None provided Findings: The heart is normal size. Normal caliber thoracic aorta. The thyroid gland appears atrophic. No mediastinal lymphadenopathy. Multiple nonenlarged mediastinal lymph nodes are nonspecific but may be reactive in etiology. 5.5 mm noncalcified right upper lobe nodule. Multiple 3-4 mm noncalcified subpleural left lower lobe nodules. Multiple 2-3 mm noncalcified left upper lobe nodules. No pulmonary mass or consolidation. No pleural effusion or pneumothorax. Tree-in-bud nodular opacities in the right apex. Tiny calcified granuloma in the right apex. Cholelithiasis. No acute fractures. IMPRESSION: 1. Mild tree-in-bud nodular opacities in the right apex suggesting inflammatory/infectious process. 2. No consolidation. 3. Multiple 2-6 mm noncalcified pulmonary nodules. ACR Fleischner Society recommendations (MacPippaholila, et al. Radiology 2017; 284(1): 228-43) suggest the following: For patients with low risk of lung cancer, no need for further follow-up. For patients with high risk of lung cancer, generally no need for follow-up. An optional follow-up chest CT at 12 months could be performed if there is high index of suspicion. If unchanged, no further follow-up is necessary. This document has been electronically signed by: Melissa Muhammad DO on 09/28/2025 13:52:17
--- OUTSIDE RECORDS SUMMARY | 2025-09-26 09:54 | XMS_ITS | Patient Health Record ---
Author Organization [facility] Address [address] [place] [id number] Care Team Providers Care Gasoline Tester Name Role Phone Makenzie (RETIRED) Jayro HORAN Primary Care Provide r Inocente Wetzel Unavailable [phone] Allergies No Known Allergies Reason For Referral No Information Medications Medication SIG (Take, Route, Frequency, Duration) Notes Start Date End Date Status Symbicort 80-4.5 MCG/ACT Aerosol 1 puff as needed Inhalation every 4 hrs Active Omeprazole 20 MG Capsule Delayed Release 1 capsule Orally Once a day; Duration: 30 day(s) 10/20/2016 Active Ventolin HFA 108 (90 Base) MCG/ACT Aerosol Solution 1 puff as needed Inhalation every 4 hrs Active Aspir-Low 81 MG Tablet Delayed Release 1 tablet Orally Once a day; Duration: 30 day(s) Active dilTIAZem HCl 120 MG Tablet as directed Orally Active Losartan Potassium 50 MG Tablet 1 tablet Orally Once a day; Duration: 30 day(s) Active Simvastatin 40 MG Tablet 1 tablet in the evening Orally Once a day Active Montelukast Sodium 10 MG Tablet 1 tablet Orally Once a day Active Immunizations Vaccine Route Administration Date Status Comme nts Influenza Unknown 08/07/2023 Administered Social History Social History Additional Details Category Social Info Options Details Miscellaneous: Marital status: 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 Caffeine: 2-3 cups per day Section Notes: Nonsmoker; no sig alcohol Nonsmoker; no sig alcohol Problems Problem Type SNOMED Code ICD Code Onset Dates Problem Status W/U Status Risk Notes Problem Screening for malignant neoplasm of colon (912639376) Encounter for screening for malignant neoplasm of colon (Z12.11) Active confirmed Problem Diverticular disease of colon (706373392) Diverticulosis of large intestine without perforation or abscess without bleeding (K57.30) Active confirmed Problem Screening for malignant neoplasm of rectum (037274432) Encounter for screening for malignant neoplasm of rectum (Z12.12) Active confirmed Problem Gastroesophageal reflux disease (033826637) Gastroesophageal reflux disease (K21.9) Active confirmed Problem Gastroesophageal reflux disease (424341983) Gastroesophageal reflux disease, esophagitis presence not specified (K21.9) Active confirmed Problem Benign neoplasm of stomach (32919705) Gastric polyps (K31.7) Active confirmed Plan Of Treatment Pending Test Test Name Order Date Pathology 07/21/2024 Future Test Test Name Order Date UPPER GI ENDOSCOPY 10/20/2016 COLONOSCOPY 10/20/2016 UPPER GI ENDOSCOPY 04/01/2024 COLONOSCOPY 04/01/2024 Insurance Providers Payer Name Payer Address Payer Phone Subscriber Number Group Number Insured Name Patient Relationship to Insured Coverage Start Date Coverage End Date [facility] PROFESSIONAL CLAIMS [address] [place] [address] [id number] ADENIKE HAMILTON Self - patient is the insured Medical (General) History Medical History History ICD Code Denies [place],DM,CVA,renal disease Hypertension Kidney stones--cystoscopy Asthma GERD Hyperlipidemia Told of an irregular heartbeat --Dr. Anabella brar--neg.ETT Surgical History Surgery Date(Month/Year)
== END 2025-09-26 09:52 | disposition home or self-care (01) ==
LOC: HO.CT 09:51
PROVIDERS: PCP Physician Assistant; Visit Provider Nurse Practitioner Family
DX: R05.9 Cough, unspecified (principal)
CPT/HCPCS: 71250

== ENCOUNTER → 2025-09-26 09:53 | Outpatient (BNV) | payer BC, SELFPAY | PROVIDERS: PCP Physician Assistant; Visit Provider Radiology Diagnostic Radiology | DX: R91.8 Other nonspecific abnormal finding of lung field (principal) | CPT/HCPCS: 71250 ==

== ENCOUNTER 2025-10-14 13:09 | Outpatient (AMB) | payer BC, SELFPAY ==
--- OUTSIDE RECORDS SUMMARY | 2024-07-21 04:30 | XMS_ITS ---
Author Organization [facility] Address [address] [place] [phone] Care Team Providers Care Sample Color Maker Name Role Phone Makenzie (RETIRED) Jayro HORAN Primary Care Provide Inocente Stevens Unavailable [phone] REASON FOR VISIT screening,gerd Problems Problem Type SNOMED Code ICD Code Onset Dates Problem Status W/U Status Risk Notes Problem Diverticular disease of colon (903297286) Diverticulosis of large intestine without perforation or abscess without bleeding (K57.30) Active confirmed Problem Gastroesophageal reflux disease (605939505) Gastroesophageal reflux disease (K21.9) Active confirmed Problem Benign neoplasm of stomach (88958899) Gastric polyps (K31.7) Active confirmed Encounters Encounter Location Date Provider Diagnosis [facility] [place] [address] [place] [phone] 07/21/2024 Inocente Peñaloza Colon cancer screeni ng [...] Notes * ADENIKE HAMILTONDOB:1960 (64 yo M)Acc No.[id number]:07/21/2024 EGD and COL/MAC Patient: ADENIKE BENTON Provider: Jessica Peñaloza MD :1960 A ge:63 Y S ex:Male Date:07/21/2024 Address:[address] [place], [place] [phone] Pcp:Jayro Banegas (RETIRED )MD Subjective: * Chief [...] 4 5385 LESION REMOVAL COLONOSCOPY, Modifiers: [place] [address] UPPER GI ENDOSCOPY, BIOPSY Billing Information: * Procedure Codes: 56008 LESION REMOVAL COLONOSCOPY[place]: [place] [address] UPPER GI ENDOSCOPY, BIOPSY. * The named appointment provid er may or may not be the originator of this progress note, and it is not deemed complete until electronically signed by the appointment provider. Sign off status: Pending * Provider: Jessica Peñaloza MD Date: Generated for Beto nguyen/Karlene/Regulosmitting on: 02:41 PM EST
--- NOTE | 2025-10-14 13:03 | MHC.OFFVIS ---
Vital Signs 10/14/25 13:12 Height 5 ft 11 in Weight 288 lb 4 oz BMI 40.2 BP 160/78 H Blood Pressure Location Lt brachial Position Sitting Pulse 87 Pulse Source Pulse Oximeter Pulse Oximetry (%) 95 Oxygen Delivery Method Room Air Intake Visit Reasons: Asthma Allergies amoxicillin (AMOXICILLIN) Allergy (Mild, Verified 10/14/25 13:13) RASH HPI HPI Asthma: Details: HPI Comments Details: Pérez is a pleasant 64 year old male, former 20 pack year smoker, quit 20 years ago with underlying asthma, HTN and GERD. He was initially seen for a harsh cough productive of green, discolored mucus and was prescribed doxycycline, which provided some improvement. However, his symptoms did not completely resolve and he was feeling miserable around the time of his subsequent CT scan. The chest CT revealed tree-in-bud opacities in the right upper lobe, indicative of inflammatory/infectious etiologies, and also found a few pulmonary nodules, the largest being 6 mm. Following the scan on September 28, he was prescribed a Z-Phoenix and prednisone, after which he felt about 80% better. He notes a pattern where his symptoms improve significantly on prednisone but tend to return after the course is finished. He has a history of asthma, for which he uses Symbicort two puffs twice daily and has a DuoNeb nebulizer, which he was using several times a day previously but not recently. He reports that for the past couple of days, he has had nasal congestion, but denies chest congestion, fever, or chills. The patient is also being followed for hypertension and is awaiting a sleep study for suspected sleep apnea. He hopes a sleep apnea diagnosis could qualify him for GLP-1 agonists to aid in weight loss, which he believes contributes to his asthma and high blood pressure. He reports significant difficulty in scheduling the sleep study. Pulmonology History - History of chronic cough that never fully resolves, with an exacerbation of a harsh cough with green mucus treated with doxycycline with partial improvement. - Subsequent treatment with a Z-Phoenix and prednisone led to about 80% improvement in chest symptoms. - Diagnosed with asthma, managed with Symbicort 2 puffs twice daily and a DuoNeb nebulizer as needed. - History of persistently elevated eosinophils. - Chest CT scan revealed tree-in-bud appearance in the right upper lobe consistent with inflammation, as well as several pulmonary nodules, the largest being 6 mm. - Currently experiencing nasal congestion but reports improvement in chest symptoms. Results - Imaging: A recent chest CT scan showed tree-in-bud opacities in the right upper lobe and multiple pulmonary nodules, with the largest measuring 6 mm. - Labs: History of persistently elevated eosinophils. [facility] Medical History (Updated 10/14/25 @ 13:57 by Jacqueline Jeter NP) Dysrhythmia Hepatitis C Asthma Allergies Elevated cholesterol HTN (hypertension) Surgical History (Updated 05/08/25 @ 10:48 by Clarissa Herrera) Total knee replacement status Hx of colonoscopy (~07/21/24) Social History Are you a primary director of home care hospice to a significant other at home: No Do you presently have visiting nurse or other home services: No Patient Tobacco Use Status: Former Tobacco user Cigarette Packs Per Day: 1 Years Smoked: 20 Review of Systems Narrative Const Denies chills, Denies excessive sweating, Denies fever(s), Denies headache(s) and Denies night sweats Eyes Denies dry eyes, Denies irritation and Denies itchy eyes ENT Reports Normal hearing present, Denies headache(s), Reports nasal congestion, Reports nasal discharge, Denies post nasal drip and Denies sore throat Card Denies chest pain, Denies chest pain at rest, Denies chest pain with activity, Denies claudication, Denies leg edema, Denies dyspnea on exertion, Denies orthopnea and Denies paroxysmal nocturnal dyspnea Resp Denies change in phlegm color, Denies chest congestion, Denies cough, Denies hemoptysis, Reports excessive phlegm production, Denies pain on inspiration, Denies pain with cough, Denies dyspnea on exertion, Denies stridor and Denies wheezing Musc Denies myalgias Neuro Reports Normal hearing present and Denies headache(s) Endo Denies excessive sweating Cas/Lymph Denies lymphadenopathy Aller/Immun Denies itchy eyes, Denies seasonal rhinorrhea and Denies wheezing Physical Exam Exam Exam: Vital Signs: Last Vital Signs Pulse 87 10/14/25 13:12 BP 160/78 H 10/14/25 13:12 Pulse Ox 95 10/14/25 13:12 Oxygen Delivery Method Room Air 10/14/25 13:12 BMI result Body Mass Index 40.2 Const General: cooperative, healthy appearing, comfortable, no acute distress, well developed and alert Nutritional Appearance: obese Orientation/consciousness: patient oriented x3 Limitations: no limitations HEENT Head: Yes normal to inspection, Yes normocephalic and Yes atraumatic Ears: hearing grossly normal bilaterally and external ears normal Eyes General: appearance normal, both eyes and all related structures Eyelids: Yes eyelids normal Sclerae: sclerae normal EOM: EOMs intact bilaterally Neck Neck: Yes normal visual inspection and Yes no lymphadenopathy Lymphatic: no lymphadenopathy noted Chest Chest palpation & inspection: normal inspection of the chest Resp Effort & Inspection: normal respiratory effort, able to speak in complete sentences, no audible wheezes, no cough, no stridor, not tachypneic, no tripod positioning and no use of accessory muscles Auscultation: wheezes expiratory wheezes Cardio Jugular venous distension: no JVD Rate: regular rate Rhythm: regular rhythm Skin Other: warm, dry General skin exam: no rashes or lesions noted Neuro General: patient oriented x3 Cranial nerves: Yes Normal hearing present Cognition (Neuro): normal cognition Gait exam (Neuro): Normal gait present Extrem General: Yes normal to inspection, Yes capillary refill normal, Yes no clubbing, cyanosis or edema and Yes no pedal edema Psych Appearance: grossly normal and well kempt Speech and movement: Normal speech and movement present and Clear speech present Affect: normal affect Attitude: cooperative Thought process: Normal thought process present Thought content: Normal thought content present Insight: Good insight present (Psych) Judgement: Good judgement present (Psych) Results Reviewed Results Reviewed: [place] [id number] CT Scan Report Signed Patient: Pérez Hazel MR#: [id number] : 1960 Acct:[id number] Age/Sex: 64 / M ADM Date: 09/26/25 Loc: HO.CT Attending Dr: Jacqueline Jeter NP Ordering Physician: Jacqueline Jeter NP Date of Service: 09/26/25 Procedure(s): CT chest wo IV con Accession Number(s): [id number] cc: Teagan Mercado; Jacqueline Jeter NP~ Report Number: [id number]: Total DLP = 290.00 mGy-cm Reason for Exam: R05.9 - Cough, unspecified CLINICAL HISTORY: R05.9 - Cough, unspecified CT CHEST WITHOUT CONTRAST Comparison: None provided Findings: The heart is normal size. Normal caliber thoracic aorta. The thyroid gland appears atrophic. No mediastinal lymphadenopathy. Multiple nonenlarged mediastinal lymph nodes are nonspecific but may be reactive in etiology. 5.5 mm noncalcified right upper lobe nodule. Multiple 3-4 mm noncalcified subpleural left lower lobe nodules. Multiple 2-3 mm noncalcified left upper lobe nodules. No pulmonary mass or consolidation. No pleural effusion or pneumothorax. Tree-in-bud nodular opacities in the right apex. Tiny calcified granuloma in the right apex. Cholelithiasis. No acute fractures. IMPRESSION: 1. Mild tree-in-bud nodular opacities in the right apex suggesting inflammatory/infectious process. 2. No consolidation. 3. Multiple 2-6 mm noncalcified pulmonary nodules. ACR Fleischner Society recommendations (MacMahon, et al. Radiology 2017; 284(1): 228-43) suggest the following: For patients with low risk of lung cancer, no need for further follow-up. For patients with high risk of lung cancer, generally no need for follow-up. An optional follow-up chest CT at 12 months could be performed if there is high index of suspicion. If unchanged, no further follow-up is necessary. This document has been electronically signed by: Melissa Muhammad DO on 09/28/2025 13:52:17 Assessment & Plan Assessment & Plan (1) Asthma: Code(s): J45.909 - Unspecified asthma, uncomplicated Category: Medical (2) Multiple pulmonary nodules: Code(s): R91.8 - Other nonspecific abnormal finding of lung field Category: Medical (3) Cough: Code(s): R05.9 - Cough, unspecified Category: Medical (4) Environmental allergies: Code(s): Z91.09 - Other allergy status, other than to drugs and biological substances Category: Medical (5) Daytime somnolence: Code(s): R40.0 - Somnolence Category: Medical (6) Loud snoring: Code(s): R06.83 - Snoring Category: Medical Plan The patient has ongoing asthma symptoms with faint wheezing heard on exam, despite regular use of Symbicort. He has a history of responding well to prednisone. A prednisone taper will be prescribed, starting at 40 mg for 3 days and then titrating down, as longer courses seem more effective for him. He will continue Symbicort 2 puffs twice daily as he feels symptoms are relatively controlled. If symptoms change, a switch to Trelegy will be considered. The patient's h/o asthma along with his history of elevated eosinophils, may need to consider a biologic such as Dupixent in the future. A refill for DuoNeb solution for his nebulizer was provided. For his current nasal congestion symptoms, Coricidin was recommended as a safe option given his history of hypertension. The patient was advised to call if his chest symptoms recur or worsen. The incidental finding of a few pulmonary nodules on his recent CT scan, with the largest being 6 mm, will be monitored for stability. A repeat chest CT scan will be performed in 6 months to re-evaluate the nodules and ensure the right upper lobe inflammation has resolved. If stable at 6 months, a subsequent scan will be performed one year later, with the goal of demonstrating stability for two years. The patient reports symptoms concerning for obstructive sleep apnea and has been trying to schedule a sleep study. A message will be sent to the sleep cost coordinator to investigate the delay and expedite scheduling. The plan is to start with a home sleep study, but if that is negative and symptoms persist, an in-lab sleep study will be ordered due to its higher accuracy. All questions were answered and patient is in agreement of plan. Will follow up in 3 months or sooner if needed. Patient Instructions - Continue taking Symbicort with 2 puffs twice a day. - Take the new prescription for a prednisone taper as directed by the pharmacy. This will be a longer course where the dose decreases over time. - Refills have been sent for your DuoNeb nebulizer solution. - For your current nasal stuffiness, you can use an [id number]-tceaxjw medicine called Coricidin, which is safe for people with high blood pressure. - You will need a follow-up chest CT scan in about 6 months. Our office will send the order, and the imaging center will call you to schedule it. - My office will contact the sleep cost coordinator to help get your sleep study scheduled. The sleep center will then call you directly. - Please call our office if your chest symptoms, like coughing or wheezing, get worse. - Please schedule a follow-up visit with me in about 3 months. Patient was informed and verbally consented to the use of an ambient scribe for clinic note documentation during this visit. Orders: Orders CT chest wo IV con 6 Months R91.8 - Other nonspecific abnormal finding of lung field Medications: New prednisone see taper instructions; 40 mg Daily x3 days, 30 mg daily x3 days, 20 mg daily x3 days, 10 mg daily x3 days 10 mg PO DIRECTED 30 tabs 0RF Discontinued albuterol sulfate Discontinued Reason: Patient Completed Course 2.5 mg (3 mL) inhalation Q4H PRN 90 mL 1RF shortness of breath or wheezing Coding Level of Care Code Est Pt Level 4 (48536) Diagnoses Asthma J45.909 Multiple pulmonary nodules R91.8 Cough R05.9 Environmental allergies Z91.09 Daytime somnolence R40.0 Loud snoring R06.83
[2025-10-14 13:12] VITALS: BP 160/78; PULSE 87; O2SAT 95; BMI 40.2
--- OUTSIDE RECORDS SUMMARY | 2025-10-14 14:42 | XMS_ITS | Patient Health Record ---
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 [employer] Caffeine: 2-3 cups per day Section Notes: Nonsmoker; no sig alcohol Nonsmoker; no sig alcohol Problems Problem Type SNOMED Code ICD Code Onset Dates Problem Status W/U Status Risk Notes Problem Screening for malignant neoplasm of colon (928060297) Encounter for screening for malignant neoplasm of colon (Z12.11) Active confirmed Problem Diverticular disease of colon (095443377) Diverticulosis of large intestine without perforation or abscess without bleeding (K57.30) Active confirmed Problem Screening for malignant neoplasm of rectum (346224465) Encounter for screening for malignant neoplasm of rectum (Z12.12) Active confirmed Problem Gastroesophageal reflux disease (470749154) Gastroesophageal reflux disease (K21.9) Active confirmed Problem Gastroesophageal reflux disease (203490509) Gastroesophageal reflux disease, esophagitis presence not specified (K21.9) Active confirmed Problem Benign neoplasm of stomach (17383846) Gastric polyps (K31.7) Active confirmed Plan Of Treatment Pending Test Test Name Order Date Pathology 07/21/2024 Future Test Test Name Order Date UPPER GI ENDOSCOPY 10/20/2016 COLONOSCOPY 10/20/2016 UPPER GI ENDOSCOPY 04/01/2024 COLONOSCOPY 04/01/2024 Insurance Providers Payer Name Payer Address Payer Phone Subscriber Number Group Number Insured Name Patient Relationship to Insured Coverage Start Date Coverage End Date [facility] PROFESSIONAL CLAIMS [address] [place] [address] [id number] ADENIKE HAMILTON Self - patient is the insured Medical (General) History Medical History History ICD Code Denies [place],DM,CVA,renal disease Hypertension Kidney stones--cystoscopy Asthma GERD Hyperlipidemia Told of an irregular heartbeat --Dr. Anabella brar--neg.ETT Surgical History Surgery Date(Month/Year)
== END 2025-10-14 13:32 | disposition home or self-care (01) ==
LOC: HO.HPSW 13:10
PROVIDERS: PCP Physician Assistant; Visit Provider Nurse Practitioner Family
DX: J45.909 Unspecified asthma, uncomplicated (principal); R91.8 Other nonspecific abnormal finding of lung field; R05.9 Cough, unspecified; Z91.09 Other allergy status, other than to drugs and biological substances; R40.0 Somnolence; R06.83 Snoring
CPT/HCPCS: 99214